=== PATIENT | male | born 1945 | race Caucasian/White ===

== ENCOUNTER 2016-05-21 09:26 | Inpatient (IN) | payer OTHER, BC ==
[2016-02-26 12:03] VITALS: Ht 177.8 cm; Wt 111.1 kg
[~2016-05-21] VITALS: Ht 177.8 cm; Wt 111.1 kg
[2016-05-21 09:26] VITALS: BP 193/92; PULSE 108; RESP 26; TEMP 97.8; O2SAT 92
[~2016-05-21 09:26] MED LIST: ALBU2.5V7 INH; AMI200 PO; CARV12.548 PO; CILO50TA PO; DILT180C66 PO; FESO8TAB PO; FURO-150 PO; GABA-529 PO; GLIP-195 PO; GLIP10TA11 PO; GLIP5TAB13 PO; INSU100V; INSU100V9 SUBCUT; LEVO500T20 PO; LIP20 PO; LIRA0.6P SQ; LOSA1TAB15 PO; METF-510 PO; METH4TAB3 PO; NOR10 PO; OMEP40CA33 PO; POTA20TA83 PO; PRED10TA PO; TIOT4MIS3 IH
[2016-05-21] MEDS ORDERED: methylPREDNISolone SOD SUCC/PF 62.5 MG/ML VIAL IVP ONE ×2 (09:45→12:30)
[2016-05-21] MEDS ORDERED: IPRATROPIUM/ALBUTEROL SULFATE 3 ML AMPUL.NEB INH ONE ×2 (09:45→12:15)
[2016-05-21 10:04] LABS: BASOPHILS % (AUTO) 0.1 % (0.0-2.0); EOSINOPHILS # (AUTO) 0.2 K/uL (0.0-0.4); EOSINOPHILS % (AUTO) 2.9 % (0.0-4.0); HEMATOCRIT 34.4 % (36-54); HEMOGLOBIN 10.8 g/dL (14.0-18.0); LYMPHOCYTES % (AUTO) 13.9 % (20.5-51.5); MEAN CORPUSCULAR HEMOGLOBIN 27 pg (27-31); MEAN CORPUSCULAR HGB CONC 31 % (32-36); MEAN CORPUSCULAR VOLUME 84 fL (79.0-98.0); MONOCYTES # (AUTO) 0.6 K/uL (0.0-1.0); MONOCYTES % (AUTO) 7.8 % (1.7-9.3); NEUTROPHILS # (AUTO) 5.4 K/uL (1.8-7.7); NEUTROPHILS % (AUTO) 75.3 % (40.0-70.0); PLATELET COUNT (AUTO) 228 K/uL (130-430); RED BLOOD CELL COUNT(AUTO) 4.08 MIL/uL (4.2-6.2); RED CELL DISTRIBUTION WIDTH 14.3 % (9.0-15.0); WHITE BLOOD COUNT (AUTO) 7.2 K/uL (4.8-10.8)
[2016-05-21 10:10] LABS: CALCIUM 8.8 mg/dL (8.4-11.0); CREATININE 0.77 mg/dL (0.55-1.30); POTASSIUM 4.4 mmol/L (3.5-5.1)
[2016-05-21 10:14] LABS: ALBUMIN 3.6 g/dL (3.4-4.8); TOTAL BILIRUBIN 0.6 mg/dL (0.0-1.0); TOTAL PROTEIN, SERUM 7.4 g/dL (6.4-8.3)
[2016-05-21] MEDS ORDERED: FUROSEMIDE 40 MG/4 ML VIAL IVP ONE (11:15)
[2016-05-21 13:07] LABS: BLOOD GAS PH 7.378 (7.350-7.450)
[2016-05-21 13:08] LABS: ABG TOTAL HEMOGLOBIN 12.7 G/dL (12.0-18.0); BLOOD GAS BASE EXCESS -3.8 mmol/L (-3.0-3.0); BLOOD GAS COHb% 0.6 % (0.5-1.5); BLOOD GAS HHB 6.2 % (0.0-6.0); BLOOD O2Hb% 93.1 % (94.0-97.0)
[2016-05-21] MEDS ORDERED: DEXTROSE 50% JECT 50 ML DISP.SYRIN IVP PRN (14:30)
[2016-05-21 15:11] VITALS: BP 196/98; PULSE 94
[2016-05-21 15:14] VITALS: BP 180/104; PULSE 105; RESP 20; TEMP 98.3; O2SAT 100
[2016-05-21 15:16] VITALS: BP 180/104; PULSE 104; RESP 20; TEMP 98.3; O2SAT 100
[2016-05-21] MEDS ORDERED: GLUCOSE 15 GM GEL (in 37.5 GM TUBE) PO PRN ×2 (15:45)
[2016-05-21] MEDS ORDERED: DEXTROSE 50%-WATER 50 ML DISP.SYRIN IVP PRN ×2 (15:45)
[2016-05-21] MEDS: ALBUTEROL SULFATE 0.083% 2.5 MG/3 ML VIAL.NEB INH SCH ×3 (16:21→23:22)
[2016-05-21] MEDS: IPRATROPIUM BROM 0.5 MG/2.5 ML VIAL.NEB (ATROVENT) INH SCH ×3 (16:21→23:22)
[2016-05-21] MEDS: GABAPENTIN 100 MG CAPSULE PO SCH ×2 (16:46→20:57)
[2016-05-21] MEDS: cefTRIAXone 1 GM in D5W 50 ML IV SCH (16:46)
[2016-05-21 17:11] LABS: BILIRUBIN,URINE NEGATIVE (NEGATIVE); BLOOD, URINE 1+ (NEGATIVE); CLARITY/URINE CLEAR (CLEAR); COLOR,URINE YELLOW (YELLOW); GLUCOSE,URINE 1+ (NEGATIVE); KETONES,URINE TRACE (NEGATIVE); LEUKOCYTE ESTERASE ,URINE NEGATIVE (NEGATIVE); NITRITE, URINE NEGATIVE (NEGATIVE); PROTEIN URINE 2+ (NEGATIVE); UROBILINOGEN,URINE 0.2 (0.2-1.0)
[2016-05-21 17:26] LABS: WBC,URINE 0-3 /HPF (0-3)
[2016-05-21 17:27] LABS: BACTERIA,URINE FEW /HPF (None Seen); MUCUS,URINE 1+ /LPF (None Seen)
[2016-05-21 17:38] VITALS: BP 182/104; PULSE 105; RESP 18; O2SAT 98
[2016-05-21] MEDS: INSULIN REGULAR, HUMAN 100 UNITS/ML, 10 ML VIAL (novoLIN R) SUBCUT PRN ×2 (17:58→23:07)
[2016-05-21 20:06] VITALS: BP 166/91; PULSE 93; RESP 20; TEMP 97.6; O2SAT 96
[2016-05-21] MEDS: CARVEDILOL 12.5 MG TABLET (COREG) PO SCH (20:58)
[2016-05-21] MEDS: CILOSTAZOL 50 MG TABLET (PLETAL) PO SCH (20:59)
[2016-05-21] MEDS: PREDNISONE 20 MG TABLET PO SCH (20:59)
[2016-05-21] MEDS: glipiZIDE XL 5 MG TAB ( GLUCOTROL XL) PO SCH (21:00)
[2016-05-21] MEDS: AMIODARONE HCL 200 MG TABLET PO SCH (21:00)
[2016-05-22] VITALS: BP 176/92; PULSE 82; RESP 16; TEMP 98.6; O2SAT 96
[2016-05-22] MEDS: IPRATROPIUM BROM 0.5 MG/2.5 ML VIAL.NEB (ATROVENT) INH SCH ×6 (03:00→23:00)
[2016-05-22] MEDS: ALBUTEROL SULFATE 0.083% 2.5 MG/3 ML VIAL.NEB INH SCH ×6 (03:00→23:00)
[2016-05-22 04:16] VITALS: BP 165/85; PULSE 86; RESP 17; TEMP 98.4; O2SAT 96
[2016-05-22] MEDS: ALBUTEROL SULFATE 0.083% 2.5 MG/3 ML VIAL.NEB INH PRN (05:56)
[2016-05-22] MEDS: IPRATROPIUM BROM 0.5 MG/2.5 ML VIAL.NEB (ATROVENT) INH PRN (05:56)
[2016-05-22] MEDS: INSULIN REGULAR, HUMAN 100 UNITS/ML, 10 ML VIAL (novoLIN R) SUBCUT PRN ×4 (06:18→20:58)
[2016-05-22 06:55] LABS: CREATININE 0.73 mg/dL (0.55-1.30); POTASSIUM 4.1 mmol/L (3.5-5.1)
[2016-05-22 07:14] LABS: HEMATOCRIT 32.9 % (36-54); HEMOGLOBIN 10.9 g/dL (14.0-18.0); MEAN CORPUSCULAR HEMOGLOBIN 28 pg (27-31); MEAN CORPUSCULAR HGB CONC 33 % (32-36); MEAN CORPUSCULAR VOLUME 85 fL (79.0-98.0); PLATELET COUNT (AUTO) 230 K/uL (130-430); RED BLOOD CELL COUNT(AUTO) 3.87 MIL/uL (4.2-6.2); RED CELL DISTRIBUTION WIDTH 14.3 % (9.0-15.0)
[2016-05-22 07:45] VITALS: BP 144/78; PULSE 83; RESP 16; TEMP 97.7; O2SAT 96
[2016-05-22 08:03] LABS: WHITE BLOOD COUNT (AUTO) 11.4 K/uL (4.8-10.8)
[2016-05-22] MEDS: glipiZIDE XL 5 MG TAB ( GLUCOTROL XL) PO SCH ×2 (08:24→17:19)
[2016-05-22] MEDS ORDERED: FUROSEMIDE 40 MG/4 ML VIAL IVP SCH (09:00)
[2016-05-22] MEDS ORDERED: LOSARTAN/HYDROCHLOROTHIAZIDE TAB (HYZAAR 50-12.5 MG) PO SCH (09:00)
[2016-05-22] MEDS: CILOSTAZOL 50 MG TABLET (PLETAL) PO SCH ×2 (09:14→21:12)
[2016-05-22] MEDS: PREDNISONE 20 MG TABLET PO SCH ×2 (09:15→21:13)
[2016-05-22] MEDS: GABAPENTIN 100 MG CAPSULE PO SCH ×3 (09:15→21:10)
[2016-05-22] MEDS: ATORVASTATIN 20 MG TABLET PO SCH (09:15)
[2016-05-22] MEDS: POTASSIUM CHLORIDE 20 MEQ TAB.PRT.SR PO SCH (09:15)
[2016-05-22] MEDS: AMIODARONE HCL 200 MG TABLET PO SCH ×2 (09:16→21:10)
[2016-05-22] MEDS: OMEPRAZOLE 20 MG CAPSULE.DR (PriLOSEC) PO SCH (09:17)
[2016-05-22] MEDS: amLODIPine BESYLATE 10 MG TABLET PO SCH (09:17)
[2016-05-22] MEDS: LOSARTAN POTASSIUM 50 MG TABLET (COZAAR) PO SCH (09:17)
[2016-05-22] MEDS: DILTIAZEM HCL 180 MG CAP.SR.24H PO SCH (09:18)
[2016-05-22] MEDS: HYDROCHLOROTHIAZIDE 12.5 MG CAPSULE (HCTZ) PO SCH (09:18)
[2016-05-22] MEDS: CARVEDILOL 12.5 MG TABLET (COREG) PO SCH ×2 (09:18→21:09)
[2016-05-22 09:45] LABS: ATYPICAL LYMPHOCYTES % 0 % (0-0); BAND % (MANUAL) 6 % (0-6); BASOPHILS % (MANUAL) 0 % (0-2); EOSINOPHILS % (MANUAL) 0 % (0-7); LYMPHOCYTES % (MANUAL) 5 % (20-46); MONOCYTES % (MANUAL) 3 % (0-11)
[2016-05-22 12:45] VITALS: BP 127/67; PULSE 92; RESP 19; TEMP 96.8; O2SAT 100
[2016-05-22 14:56] LABS: BLOOD GAS PH 7.433 (7.350-7.450)
[2016-05-22 14:57] LABS: ABG TOTAL HEMOGLOBIN 11.9 G/dL (12.0-18.0); BLOOD GAS BASE EXCESS -0.1 mmol/L (-3.0-3.0); BLOOD GAS COHb% 0.4 % (0.5-1.5); BLOOD GAS HHB 8.3 % (0.0-6.0); BLOOD O2Hb% 90.8 % (94.0-97.0)
[2016-05-22] MEDS: cefTRIAXone 1 GM in D5W 50 ML IV SCH (16:18)
[2016-05-22 16:20] VITALS: BP 117/60; PULSE 65; RESP 17; TEMP 98.2; O2SAT 95
[2016-05-22 20:05] VITALS: BP 132/94; PULSE 75; RESP 15; TEMP 98; O2SAT 99
[2016-05-23 00:13] VITALS: BP 139/68; PULSE 82; RESP 18; TEMP 97.9; O2SAT 96
[2016-05-23] MEDS: ALBUTEROL SULFATE 0.083% 2.5 MG/3 ML VIAL.NEB INH PRN (02:22)
[2016-05-23] MEDS: IPRATROPIUM BROM 0.5 MG/2.5 ML VIAL.NEB (ATROVENT) INH PRN (02:23)
[2016-05-23] MEDS: IPRATROPIUM BROM 0.5 MG/2.5 ML VIAL.NEB (ATROVENT) INH SCH ×6 (03:00→23:14)
[2016-05-23] MEDS: ALBUTEROL SULFATE 0.083% 2.5 MG/3 ML VIAL.NEB INH SCH ×6 (03:00→23:14)
[2016-05-23 04:04] VITALS: BP 124/70; PULSE 71; RESP 20; TEMP 98.6; O2SAT 94
[2016-05-23] MEDS: INSULIN REGULAR, HUMAN 100 UNITS/ML, 10 ML VIAL (novoLIN R) SUBCUT PRN ×3 (06:03→17:31)
[2016-05-23 07:30] LABS: CREATININE 1.28 mg/dL (0.55-1.30); POTASSIUM 4.6 mmol/L (3.5-5.1)
[2016-05-23 08:10] VITALS: BP 127/61; PULSE 72; RESP 18; TEMP 97.1; O2SAT 99
[2016-05-23] MEDS ORDERED: FUROSEMIDE 40 MG TABLET PO SCH (09:00)
[2016-05-23] MEDS: POTASSIUM CHLORIDE 20 MEQ TAB.PRT.SR PO SCH (09:17)
[2016-05-23] MEDS: LOSARTAN POTASSIUM 50 MG TABLET (COZAAR) PO SCH (09:17)
[2016-05-23] MEDS: DILTIAZEM HCL 180 MG CAP.SR.24H PO SCH (09:17)
[2016-05-23] MEDS: ATORVASTATIN 20 MG TABLET PO SCH (09:18)
[2016-05-23] MEDS: glipiZIDE XL 5 MG TAB ( GLUCOTROL XL) PO SCH ×2 (09:18→20:58)
[2016-05-23] MEDS: CARVEDILOL 12.5 MG TABLET (COREG) PO SCH ×2 (09:18→20:58)
[2016-05-23] MEDS: amLODIPine BESYLATE 10 MG TABLET PO SCH (09:19)
[2016-05-23] MEDS: AMIODARONE HCL 200 MG TABLET PO SCH ×2 (09:19→20:57)
[2016-05-23] MEDS: HYDROCHLOROTHIAZIDE 12.5 MG CAPSULE (HCTZ) PO SCH (09:20)
[2016-05-23] MEDS: GABAPENTIN 100 MG CAPSULE PO SCH ×3 (09:21→20:57)
[2016-05-23] MEDS: PREDNISONE 20 MG TABLET PO SCH (09:27)
[2016-05-23] MEDS: CILOSTAZOL 50 MG TABLET (PLETAL) PO SCH ×2 (09:27→20:57)
[2016-05-23] MEDS: OMEPRAZOLE 20 MG CAPSULE.DR (PriLOSEC) PO SCH (09:27)
[2016-05-23 12:31] VITALS: BP 139/77; PULSE 75; RESP 18; TEMP 97.6; O2SAT 100
[2016-05-23] MEDS: cefTRIAXone 1 GM in D5W 50 ML IV SCH (15:36)
[2016-05-23 16:18] VITALS: BP 113/69; PULSE 69; RESP 17; TEMP 98.4; O2SAT 97
[2016-05-23] MEDS: 0.45% NACL 1,000 ML IV SCH (16:32)
[2016-05-23 20:05] VITALS: BP 122/61; PULSE 70; RESP 16; TEMP 98.5; O2SAT 97
[2016-05-23] MEDS: PREDNISONE 10 MG TABLET PO SCH (21:04)
[2016-05-24] VITALS (7 sets, daily range): BP systolic 116–134; BP diastolic 56–68; PULSE 62–69; RESP 16–20; TEMP 96.5–97.4; O2SAT 87–98
[2016-05-24] MEDS: INSULIN REGULAR, HUMAN 100 UNITS/ML, 10 ML VIAL (novoLIN R) SUBCUT PRN ×4 (00:07→16:51)
[2016-05-24] MEDS: IPRATROPIUM BROM 0.5 MG/2.5 ML VIAL.NEB (ATROVENT) INH SCH ×6 (03:00→23:00)
[2016-05-24] MEDS: ALBUTEROL SULFATE 0.083% 2.5 MG/3 ML VIAL.NEB INH SCH ×6 (03:00→23:00)
[2016-05-24] MEDS: IPRATROPIUM BROM 0.5 MG/2.5 ML VIAL.NEB (ATROVENT) INH PRN (05:15)
[2016-05-24] MEDS: ALBUTEROL SULFATE 0.083% 2.5 MG/3 ML VIAL.NEB INH PRN (05:15)
[2016-05-24 08:00] LABS: CREATININE 0.78 mg/dL (0.55-1.30); POTASSIUM 3.4 mmol/L (3.5-5.1)
[2016-05-24 08:14] LABS: CALCIUM 6.8 mg/dL (8.4-11.0)
[2016-05-24] MEDS: GABAPENTIN 100 MG CAPSULE PO SCH ×3 (09:23→20:52)
[2016-05-24] MEDS: POTASSIUM CHLORIDE 20 MEQ TAB.PRT.SR PO SCH (09:23)
[2016-05-24] MEDS: glipiZIDE XL 5 MG TAB ( GLUCOTROL XL) PO SCH ×2 (09:24→20:52)
[2016-05-24] MEDS: HYDROCHLOROTHIAZIDE 12.5 MG CAPSULE (HCTZ) PO SCH (09:24)
[2016-05-24] MEDS: ATORVASTATIN 20 MG TABLET PO SCH (09:24)
[2016-05-24] MEDS: OMEPRAZOLE 20 MG CAPSULE.DR (PriLOSEC) PO SCH (09:24)
[2016-05-24] MEDS: CARVEDILOL 12.5 MG TABLET (COREG) PO SCH ×2 (09:25→20:53)
[2016-05-24] MEDS: CILOSTAZOL 50 MG TABLET (PLETAL) PO SCH ×2 (09:25→20:52)
[2016-05-24] MEDS: AMIODARONE HCL 200 MG TABLET PO SCH ×2 (09:26→20:53)
[2016-05-24] MEDS: amLODIPine BESYLATE 10 MG TABLET PO SCH (09:26)
[2016-05-24] MEDS: PREDNISONE 10 MG TABLET PO SCH ×2 (09:26→20:52)
[2016-05-24] MEDS: LOSARTAN POTASSIUM 50 MG TABLET (COZAAR) PO SCH (09:27)
[2016-05-24] MEDS: DILTIAZEM HCL 180 MG CAP.SR.24H PO SCH (09:28)
[2016-05-24] MEDS: 0.45% NACL 1,000 ML IV SCH (09:38)
[2016-05-24] MEDS: cefTRIAXone 1 GM in D5W 50 ML IV SCH (15:37)
[2016-05-25 00:14] VITALS: BP 118/55; PULSE 65; RESP 18; TEMP 98.7; O2SAT 92
[2016-05-25] MEDS: INSULIN REGULAR, HUMAN 100 UNITS/ML, 10 ML VIAL (novoLIN R) SUBCUT PRN ×2 (00:23→05:21)
[2016-05-25] MEDS: ALBUTEROL SULFATE 0.083% 2.5 MG/3 ML VIAL.NEB INH SCH ×3 (03:00→11:41)
[2016-05-25] MEDS: IPRATROPIUM BROM 0.5 MG/2.5 ML VIAL.NEB (ATROVENT) INH SCH ×3 (03:00→11:41)
[2016-05-25] MEDS: ALBUTEROL SULFATE 0.083% 2.5 MG/3 ML VIAL.NEB INH PRN (03:30)
[2016-05-25] MEDS: IPRATROPIUM BROM 0.5 MG/2.5 ML VIAL.NEB (ATROVENT) INH PRN (03:31)
[2016-05-25 04:27] VITALS: BP 136/73; PULSE 69; RESP 20; TEMP 97.9; O2SAT 92
[2016-05-25] MEDS: 0.45% NACL 1,000 ML IV SCH (05:20)
[2016-05-25 08:00] VITALS: BP 156/68; PULSE 68; RESP 20; TEMP 97.9; O2SAT 92
[2016-05-25] MEDS: CILOSTAZOL 50 MG TABLET (PLETAL) PO SCH (09:04)
[2016-05-25] MEDS: GABAPENTIN 100 MG CAPSULE PO SCH (09:05)
[2016-05-25] MEDS: HYDROCHLOROTHIAZIDE 12.5 MG CAPSULE (HCTZ) PO SCH (09:05)
[2016-05-25] MEDS: glipiZIDE XL 5 MG TAB ( GLUCOTROL XL) PO SCH (09:05)
[2016-05-25] MEDS: DILTIAZEM HCL 180 MG CAP.SR.24H PO SCH (09:06)
[2016-05-25] MEDS: AMIODARONE HCL 200 MG TABLET PO SCH (09:06)
[2016-05-25] MEDS: PREDNISONE 10 MG TABLET PO SCH (09:06)
[2016-05-25] MEDS: CARVEDILOL 12.5 MG TABLET (COREG) PO SCH (09:07)
[2016-05-25] MEDS: LOSARTAN POTASSIUM 50 MG TABLET (COZAAR) PO SCH (09:07)
[2016-05-25] MEDS: POTASSIUM CHLORIDE 20 MEQ TAB.PRT.SR PO SCH (09:07)
[2016-05-25] MEDS: ATORVASTATIN 20 MG TABLET PO SCH (09:07)
[2016-05-25] MEDS: OMEPRAZOLE 20 MG CAPSULE.DR (PriLOSEC) PO SCH (09:07)
[2016-05-25] MEDS: amLODIPine BESYLATE 10 MG TABLET PO SCH (09:08)
[2016-05-25 12:57] VITALS: BP 141/68; PULSE 66; RESP 17; TEMP 96.9; O2SAT 97
== END 2016-05-25 13:40 | disposition home or self-care (01) | DRG 190 ==
LOC: SED 09:26 → SMU 12:38 → STU 14:51
PROVIDERS: ADMIT Internal Medicine Hospice and Palliative Medicine; ATTEND Internal Medicine Hospice and Palliative Medicine
DX: J44.1 Chronic obstructive pulmonary disease with (acute) exacerbation (principal); I50.21 Acute systolic (congestive) heart failure; J45.901 Unspecified asthma with (acute) exacerbation; I11.0 Hypertensive heart disease with heart failure; I25.10 Atherosclerotic heart disease of native coronary artery without angina pectoris; E11.65 Type 2 diabetes mellitus with hyperglycemia; Z96.653 Presence of artificial knee joint, bilateral; E11.51 Type 2 diabetes mellitus with diabetic peripheral angiopathy without gangrene; E11.42 Type 2 diabetes mellitus with diabetic polyneuropathy; Z90.49 Acquired absence of other specified parts of digestive tract; Z79.899 Other long term (current) drug therapy; Z95.1 Presence of aortocoronary bypass graft; Z79.4 Long term (current) use of insulin; Z86.73 Personal history of transient ischemic attack (TIA), and cerebral infarction without residual deficits
CPT/HCPCS: 36415; 36600; 71010; 80048; 80053; 81000-TC; 82803-TC; 82962; 83880; 85007; 85025; 85027; 87040-TC; 87086; 93005; 93306; 93970; 94640; 94760; 96374; 96375; 96376; 97110-GP; 97116-GP; 97530-GP; 99291; J0696; J1815; J1940; J2930; J7030; J7040; J7050; J7060; J7512

== ENCOUNTER 2016-06-23 21:16 | Inpatient (IN) | payer OTHER, BC ==
[2016-02-26 12:03] VITALS: Ht 177.8 cm; Wt 114.3 kg
[~2016-06-23] VITALS: Ht 177.8 cm; Wt 114.3 kg
--- NOTE | 2016-06-23 20:00 | NUR ---
Notes Patient is A/A/O X4, no acute distress noted. On room air, respiration even and unlabored. No sob noted. 2+ pitting edema to papo lower ext noted. Elevated papo lower ext on pillow support. Denies any pain at this time. Instructed pt on the use of call light. Pt verbalized understanding. Bed locked and in low position, side rails up x3, bed alarm on. Call light, urinal and bedside table within reach. Will continue to monitor. Addendum: 06/24/16 at 2337 by Arelis Hanson LVN wrong time entry
[2016-06-23 21:20] VITALS: BP 147/80; PULSE 96; RESP 16; TEMP 97.8; O2SAT 98
--- NOTE | 2016-06-23 22:18 | NUR ---
Patient to ER bed 7 to gown for evaluation. Side rails up. Report given to AMPARO MARCH.
--- NOTE | 2016-06-23 22:30 | NUR ---
ER at bedside examining patient.
--- NOTE | 2016-06-23 22:30 | NUR ---
Pt brought in by sister in stable condition. Pt c/o difficulty breathing today. Pt present w/ pitting edema to bilat lower extremities. Pt was recently discharge for [facility] for COPD. Pt stated that he has generalized weakness x3 days. -sob -chest pain. Placed pt on youth nutritional monitor. No acute distress noted at this time, will continue to monitor
[2016-06-23 23:31] LABS: BASOPHILS % (AUTO) 0.1 % (0.0-2.0); EOSINOPHILS % (AUTO) 0.1 % (0.0-4.0); HEMATOCRIT 31.1 % (36-54); HEMOGLOBIN 9.8 g/dL (14.0-18.0); LYMPHOCYTES # (AUTO) 0.4 K/uL (1.0-5.5); LYMPHOCYTES % (AUTO) 8.5 % (20.5-51.5); MEAN CORPUSCULAR HEMOGLOBIN 26 pg (27-31); MEAN CORPUSCULAR HGB CONC 32 % (32-36); MEAN CORPUSCULAR VOLUME 83 fL (79.0-98.0); MONOCYTES # (AUTO) 0.1 K/uL (0.0-1.0); MONOCYTES % (AUTO) 1.7 % (1.7-9.3); NEUTROPHILS # (AUTO) 4.1 K/uL (1.8-7.7); NEUTROPHILS % (AUTO) 89.6 % (40.0-70.0); PLATELET COUNT (AUTO) 244 K/uL (130-430); RED BLOOD CELL COUNT(AUTO) 3.75 MIL/uL (4.2-6.2); RED CELL DISTRIBUTION WIDTH 15.7 % (9.0-15.0); WHITE BLOOD COUNT (AUTO) 4.6 K/uL (4.8-10.8)
[2016-06-23 23:36] LABS: CALCIUM 8.8 mg/dL (8.4-11.0); CREATININE 1.2 mg/dL (0.55-1.30); POTASSIUM 3.7 mmol/L (3.5-5.1)
[2016-06-23] MEDS ORDERED: FUROSEMIDE 100 MG/10 ML VIAL IVP ONE (23:45)
[2016-06-23 23:56] LABS: ALBUMIN 3.4 g/dL (3.4-4.8); TOTAL BILIRUBIN 0.6 mg/dL (0.0-1.0); TOTAL PROTEIN, SERUM 6.8 g/dL (6.4-8.3)
[2016-06-24] VITALS (7 sets, daily range): BP systolic 102–152; BP diastolic 60–93; PULSE 73–99; RESP 18–20; TEMP 96.2–98.5; O2SAT 94–97
[2016-06-24] MEDS ORDERED: ALBU8.5H8 INH (00:10)
[2016-06-24] MEDS ORDERED: DEXTROSE 50% JECT 50 ML DISP.SYRIN IVP PRN (00:15)
--- NOTE | 2016-06-24 00:45 | NUR ---
Patient will be admitted to care of Dr. Holman. Admitted to tele unit. Will go to room 135 Belongings list completed. Summary report printed. Report given to AMPARO Guillen.
--- NOTE | 2016-06-24 00:46 | NUR ---
ADMISSION NOTE Received patient from ER via gurney. Patient admitted with diagnosis of CHF EXACERBATION. Patient is awake, alert, oriented X4. Patient oriented to hospital room, call light, toileting, pain management and safety-teach back done. Patient informed that KEMAL RN will be his nurse and that their room number is 118B. Personal belongings checked and Belongings List documented. Call light within reach.
--- NOTE | 2016-06-24 00:48 | NUR ---
INITIAL ASSESSMENT PT. A/OX4, VITAL SIGNS STABLE, PT. ABLE TO AMBULATE FROM GURNEY TO BED WITH SLOW, STEADY, GAIT. NO RESPIRATORY DISTRESS NOTED, O2 IS 96% ON ROOM AIR, NOTED WITH BILATERAL LOWER EXTREMITY PITTING EDEMA 2+, BLE ELEVATED, UPDATED WITH PLAN OF CARE, ENCOURAGED PT. TO USE CALL LIGHT FOR ASSISTANCE, SAFETY PRECAUTIONS MAINTAINED, WILL CONTINUE TO MONITOR.
[2016-06-24] MEDS: ASPIRIN 325 MG TABLET PO SCH ×2 (01:01→09:34)
--- NOTE | 2016-06-24 01:06 | NUR ---
CONSULT: CONSULT CALLED FOR DR. MARIN I SPOKE WITH TERESA FRAGA REASON: CHF EXACERBATION NUMBER I CALLED [phone]
--- NOTE | 2016-06-24 01:30 | NUR ---
URINAL PT. ABLE TO URINATE IN URINAL, NOTED WITH 300 CC HÉCTOR URINE.
--- NOTE | 2016-06-24 03:33 | NUR ---
RN ROUNDS PT. RESTING QUIETLY, VITAL SIGNS STABLE, NO DISTRESS NOTED, DENIES PAIN, CALL LIGHT WITHIN REACH, WILL CONTINUE TO MONITOR.
--- NOTE | 2016-06-24 05:30 | NUR ---
RN ROUNDS PT. RESTING QUIETLY, VITAL SIGNS STABLE, NO DISTRESS NOTED, DENIES PAIN. CALL LIGHT WITHIN REACH, WILL CONTINUE TO MONITOR.
[2016-06-24] MEDS: INSULIN ASPART 100 UNITS/ML, 10 ML VIAL (NovoLOG) SUBCUT PRN ×2 (06:03→13:18)
--- NOTE | 2016-06-24 06:28 | NUR ---
ACCUCHECK, CLOSING NOTES BLOOD SUGAR 191, 2 UNITS NOVOLOG GIVEN ORDERED. VITAL SIGNS STABLE, NO DISTRESS NOTED, DENIES PAIN, IV ACCESS FLUSHED WELL, ALL ANTICIPATED NEEDS MET.
--- NOTE | 2016-06-24 07:25 | NUR ---
Nutrition Update Pt was admitted with chronic heart failure exacerbation. Zohaib Scale: 18 Diet: CCHO-60 gm BMI: 36.2 kg/m2 RD to follow up per nutrition care standards.
--- NOTE | 2016-06-24 08:00 | NUR ---
initial notes [facility] patient awake alert with hob slightly elevated . on room air, resp easy and unlabored. no sob noted. call light within reached and assisted to the br with min assists and had a bowel movement. bed in low positon and side rails up and locked. will ocntinue to monitor patient.
[2016-06-24] MEDS ORDERED: LOSARTAN/HYDROCHLOROTHIAZIDE TAB (HYZAAR 50-12.5 MG) PO SCH (09:00)
[2016-06-24] MEDS ORDERED: glipiZIDE XL 5 MG TAB ( GLUCOTROL XL) PO SCH (09:00)
--- NOTE | 2016-06-24 09:20 | NUR ---
Pulmo consult: for Dr. Simental, regarding SOB (Dr. Gutierrez is communications billing analyst), ordered by Dr. Holman, spoke with Gia.
[2016-06-24] MEDS ORDERED: LORazepam 2 MG/ML VIAL IVP PRN (09:30)
[2016-06-24] MEDS ORDERED: POTASSIUM CHLORIDE 10 MEQ TAB.PRT.SR PO PRN (09:30)
[2016-06-24] MEDS ORDERED: ZOLPIDEM TARTRATE 5 MG TABLET PO PRN (09:30)
[2016-06-24] MEDS ORDERED: ACETAMINOPHEN 325 MG TABLET PO PRN (09:30)
[2016-06-24] MEDS ORDERED: MAGNESIUM SULFATE 50 ML IV PRN (09:30)
[2016-06-24] MEDS ORDERED: DOCUSATE SODIUM 100 MG CAPSULE PO PRN (09:30)
[2016-06-24] MEDS ORDERED: MORPHINE 2 MG/ML INJ. SYRINGE IVP PRN (09:30)
[2016-06-24] MEDS ORDERED: ONDANSETRON HCL 4 MG/2 ML VIAL IVP PRN (09:30)
[2016-06-24] MEDS: GABAPENTIN 100 MG CAPSULE PO SCH ×3 (09:32→20:57)
[2016-06-24] MEDS: OMEPRAZOLE 20 MG CAPSULE.DR (PriLOSEC) PO SCH (09:32)
[2016-06-24] MEDS: DILTIAZEM HCL 180 MG CAP.SR.24H PO SCH (09:33)
[2016-06-24] MEDS: AMIODARONE HCL 200 MG TABLET PO SCH ×2 (09:34→20:57)
[2016-06-24] MEDS: CARVEDILOL 12.5 MG TABLET (COREG) PO SCH ×2 (09:36→20:57)
--- NOTE | 2016-06-24 09:41 | NUR ---
seen by dr tracy. abg done at bedside.
[2016-06-24] MEDS: POTASSIUM CHLORIDE 20 MEQ TAB.PRT.SR PO SCH (09:48)
[2016-06-24 10:10] LABS: ABG TOTAL HEMOGLOBIN 10.6 G/dL (12.0-18.0); BLOOD GAS BASE EXCESS 0.6 mmol/L (-3.0-3.0); BLOOD GAS PH 7.459 (7.350-7.450)
[2016-06-24 10:11] LABS: BLOOD GAS COHb% 0.1 % (0.5-1.5); BLOOD GAS HHB 6.7 % (0.0-6.0); BLOOD O2Hb% 92.7 % (94.0-97.0)
[2016-06-24] MEDS ORDERED: ASPIRIN 81 MG TAB.CHEW PO ONE (10:15)
[2016-06-24] MEDS ORDERED: FUROSEMIDE 40 MG/4 ML VIAL IVP ONE (10:15)
[2016-06-24] MEDS ORDERED: ENOXAPARIN SODIUM 40 MG/0.4 ML SYRINGE SUBCUT ONE (10:15)
[2016-06-24] MEDS ORDERED: LOSARTAN POTASSIUM 50 MG TABLET (COZAAR) PO ONE (10:45)
[2016-06-24] MEDS ORDERED: HYDROCHLOROTHIAZIDE 25 MG TABLET (HCTZ) PO ONE (10:45)
--- NOTE | 2016-06-24 12:00 | NUR ---
rounds no hypo hyperglycemic reaction noted. family in the room with the patient. no acute distress.
[2016-06-24] MEDS ORDERED: COMMUNICATION ORDER XX ONE ×2 (13:15→16:30)
--- NOTE | 2016-06-24 14:00 | NUR ---
rounds sleeps at intervals. no acute distress noted. call light within reached.
[2016-06-24] MEDS ORDERED: ATORVASTATIN 20 MG TABLET PO ONE (14:45)
[2016-06-24] MEDS ORDERED: ALBUTEROL SULFATE 0.083% 2.5 MG/3 ML VIAL.NEB INH PRN (15:30)
[2016-06-24] MEDS ORDERED: IPRATROPIUM BROM 0.5 MG/2.5 ML VIAL.NEB (ATROVENT) INH PRN (15:30)
--- NOTE | 2016-06-24 16:00 | NUR ---
rounds on breathing tx at this time. no sob noted. voiding using urinal at bedside.
[2016-06-24] MEDS: IPRATROPIUM/ALBUTEROL SULFATE 3 ML AMPUL.NEB INH SCH ×2 (16:24→16:25)
--- NOTE | 2016-06-24 18:30 | NUR ---
closing notes eating dinner. no hypo hyperglycemic reaction noted. bed in low position and side rails up and locked. no acute distress noted. stable , needs attended.
--- NOTE | 2016-06-24 20:00 | NUR ---
Notes Patient is A/A/O X4, no acute distress noted. On room air, respiration even and unlabored. No sob noted. 2+ pitting edema to papo lower ext noted. Elevated papo lower ext on pillow support. Denies any pain at this time. Instructed pt on the use of call light. Pt verbalized understanding. Bed locked and in low position, side rails up x3, bed alarm on. Call light, urinal and bedside table within reach. Will continue to monitor.
[2016-06-24] MEDS: glipiZIDE XL 5 MG TAB ( GLUCOTROL XL) PO SCH (20:56)
--- NOTE | 2016-06-24 21:01 | NUR ---
NOTES; BLOOD SUGAR FOUND TO BE 96. NO INSULIN ADMINISTERED PER SLIDING SCALE COVERAGE. SCHEDULED PO MEDICATION ADMINISTERED. PT TOLERATED MEDS WELL. SNACK OF 1/2 SANDWICH PROVIDED. PT ATE 100%. SAFETY MEASURES IN PROGRESS. WILL CONTINUE TO MONITOR.
[2016-06-24] MEDS: FUROSEMIDE 40 MG/4 ML VIAL IVP SCH (21:34)
--- NOTE | 2016-06-24 23:26 | NUR ---
NOTES; PT APPEARED TO BE SLEEPING, EYES CLOSED. RESPIRATION EVEN AND UNLABORED. EASILY AROUSED. SAFETY MEASURES IN PROGRESS. WILL CONTINUE TO MONITOR.
--- NOTE | 2016-06-24 23:36 | NUR ---
Notes Patient is A/A/O X4, no acute distress noted. On room air, respiration even and unlabored. No sob noted. 2+ pitting edema to papo lower ext noted. Elevated papo lower ext on pillow support. Denies any pain at this time. Instructed pt on the use of call light. Pt verbalized understanding. Bed locked and in low position, side rails up x3, bed alarm on. Call light, urinal and bedside table within reach. Will continue to monitor. Addendum: 06/24/16 at 2336 by Arelis Hanson LVN wrong time entry
[2016-06-25] VITALS (7 sets, daily range): BP systolic 102–135; BP diastolic 60–71; PULSE 59–76; RESP 16–18; TEMP 96–98.2; O2SAT 94–99
--- NOTE | 2016-06-25 02:00 | NUR ---
NOTES; PT APPEARED TO BE SLEEPING, EYES CLOSED. RESPIRATION EVEN AND UNLABORED. EASILY AROUSED. SAFETY MEASURES IN PROGRESS. WILL CONTINUE TO MONITOR.
--- NOTE | 2016-06-25 04:30 | NUR ---
NOTES; PT APPEARED TO BE SLEEPING, EYES CLOSED. RESPIRATION EVEN AND UNLABORED. EASILY AROUSED. SAFETY MEASURES IN PROGRESS. WILL CONTINUE TO MONITOR.
--- NOTE | 2016-06-25 06:27 | NUR ---
NOTES AWAKE, IN BED. NO ACUTE DISTRESS NOTED. VITAL SIGNS STABLE, AFEBRILE. IV PATENT. BLOOD SUGAR FOUND TO BE 90. NO SIGNS OR SYMPTOMS OF HYPOGLYCEMIA NOTED. DENIES ANY PAIN AT THIS TIME. ALL NEEDS ATTENDED. SAFETY MEASURES IN PROGRESS.
[2016-06-25] MEDS: ALBUTEROL SULFATE 0.083% 2.5 MG/3 ML VIAL.NEB INH SCH ×4 (06:31→21:56)
[2016-06-25] MEDS: IPRATROPIUM BROM 0.5 MG/2.5 ML VIAL.NEB (ATROVENT) INH SCH ×4 (06:31→21:57)
[2016-06-25] MEDS: IPRATROPIUM/ALBUTEROL SULFATE 3 ML AMPUL.NEB INH SCH ×3 (06:34→15:00)
[2016-06-25 07:28] LABS: BASOPHILS % (AUTO) 0.2 % (0.0-2.0); EOSINOPHILS # (AUTO) 0.1 K/uL (0.0-0.4); EOSINOPHILS % (AUTO) 1.3 % (0.0-4.0); HEMATOCRIT 31.3 % (36-54); HEMOGLOBIN 9.7 g/dL (14.0-18.0); LYMPHOCYTES # (AUTO) 1.7 K/uL (1.0-5.5); LYMPHOCYTES % (AUTO) 22.1 % (20.5-51.5); MEAN CORPUSCULAR HEMOGLOBIN 26 pg (27-31); MEAN CORPUSCULAR HGB CONC 31 % (32-36); MEAN CORPUSCULAR VOLUME 83 fL (79.0-98.0); MONOCYTES # (AUTO) 0.7 K/uL (0.0-1.0); MONOCYTES % (AUTO) 8.6 % (1.7-9.3); NEUTROPHILS # (AUTO) 5.4 K/uL (1.8-7.7); NEUTROPHILS % (AUTO) 67.8 % (40.0-70.0); PLATELET COUNT (AUTO) 263 K/uL (130-430); RED CELL DISTRIBUTION WIDTH 15.4 % (9.0-15.0)
[2016-06-25 07:36] LABS: CALCIUM 8.9 mg/dL (8.4-11.0); CREATININE 1.33 mg/dL (0.55-1.30); POTASSIUM 4.1 mmol/L (3.5-5.1)
[2016-06-25 07:37] LABS: WHITE BLOOD COUNT (AUTO) 7.9 K/uL (4.8-10.8)
--- NOTE | 2016-06-25 08:00 | NUR ---
initial notes rec patient awake alert with hob elevated. ivl on the l forearm intact. no infiltration noted. with o2 at 2 liters via nasal cannula. no sob noted . denies any chest pain and resting quietly in bed. bed in low position and side rails up and locked. call light within reached and knows when to call for assistance.
[2016-06-25 08:24] LABS: ALBUMIN 3.4 g/dL (3.4-4.8); TOTAL BILIRUBIN 0.7 mg/dL (0.0-1.0); TOTAL PROTEIN, SERUM 6.5 g/dL (6.4-8.3)
[2016-06-25] MEDS ORDERED: FUROSEMIDE 40 MG/4 ML VIAL IVP SCH ×2 (09:00)
[2016-06-25 09:01] LABS: THYROID STIMULATING HORMONE 0.91 uIu/mL (0.34-4.82)
[2016-06-25] MEDS: TOVIAZ 8 MG PO SCH (09:21)
[2016-06-25] MEDS: POTASSIUM CHLORIDE 20 MEQ TAB.PRT.SR PO SCH (09:22)
[2016-06-25] MEDS: OMEPRAZOLE 20 MG CAPSULE.DR (PriLOSEC) PO SCH (09:22)
[2016-06-25] MEDS: ENOXAPARIN SODIUM 40 MG/0.4 ML SYRINGE SUBCUT SCH (09:23)
[2016-06-25] MEDS: glipiZIDE XL 5 MG TAB ( GLUCOTROL XL) PO SCH ×2 (09:23→22:22)
[2016-06-25] MEDS: AMIODARONE HCL 200 MG TABLET PO SCH ×2 (09:24→21:00)
[2016-06-25] MEDS: FUROSEMIDE 40 MG/4 ML VIAL IVP SCH ×2 (09:24→22:23)
[2016-06-25] MEDS: ASPIRIN 81 MG TAB.CHEW PO SCH (09:25)
[2016-06-25] MEDS: HYDROCHLOROTHIAZIDE 25 MG TABLET (HCTZ) PO SCH (09:25)
[2016-06-25] MEDS: DILTIAZEM HCL 180 MG CAP.SR.24H PO SCH (09:26)
[2016-06-25] MEDS: GABAPENTIN 100 MG CAPSULE PO SCH ×3 (09:26→22:23)
[2016-06-25] MEDS: CARVEDILOL 12.5 MG TABLET (COREG) PO SCH ×2 (09:27→21:00)
[2016-06-25] MEDS: ATORVASTATIN 20 MG TABLET PO SCH (09:27)
[2016-06-25] MEDS ORDERED: METOLAZONE 2.5 MG TABLET PO ONE (09:30)
[2016-06-25] MEDS: LOSARTAN POTASSIUM 50 MG TABLET (COZAAR) PO SCH (09:43)
--- NOTE | 2016-06-25 10:00 | NUR ---
rounds seen by dr tracy at bedside and with orders. no acute distress no sob noted.
--- NOTE | 2016-06-25 12:00 | NUR ---
rounds no acute distress noted. patient watching the interment of through [place] form the [place]. stable.
--- NOTE | 2016-06-25 14:00 | NUR ---
rounds family at bedside with patient post interment of patient's . no acute distress. stable . call light within reached.
--- NOTE | 2016-06-25 16:00 | NUR ---
rounds family still at bedside comforting patient. no sob noted.
--- NOTE | 2016-06-25 18:30 | NUR ---
closing notes no acute distress,no hypo hyperglycemic reaction noted. bed in low position and call light within reached. stable needs attended.
--- NOTE | 2016-06-25 20:00 | NUR ---
BEGINNING REGISTER OF DEEDS NOTE Patient in bed resting. No S/S of respiratory distress noted, no pain. Bed in low position, call light within reach. Patient stated he is cold and requested air conditioning decreased. The nurse followed up with the security. Report received from day shift nurse
--- NOTE | 2016-06-25 22:00 | NUR ---
2200 NOTE Patient sitting in a chair next to bed watching TV. No S/S of distress or pain noted. Fall precautions in place. The nurse withheld 2 scheduled medications: Amiodarone and Carvedilol due to a low heart rate 59, the borderline low blood pressure 108/61 and the scheduled at the same time Lasix 40 mg IV push.
--- NOTE | 2016-06-26 | NUR ---
0000 ROUNDS Patient in bed sleeping. No S/S of any distress noted, no pain. Fall precautions in place.
--- NOTE | 2016-06-26 02:00 | NUR ---
0200 ROUNDS Patient in bed sleeping. No pain or any distress noted. Fall precautions in place.
[2016-06-26 03:57] VITALS: BP 154/70; PULSE 62; RESP 16; TEMP 97.2; O2SAT 95
--- NOTE | 2016-06-26 04:00 | NUR ---
0400 ROUNDS Patient in bed sleeping. No S/S of pain or distress noted. Fall precautions in place.
[2016-06-26 06:49] LABS: CALCIUM 8.8 mg/dL (8.4-11.0); CREATININE 1.35 mg/dL (0.55-1.30); POTASSIUM 3.5 mmol/L (3.5-5.1)
[2016-06-26 06:51] LABS: BASOPHILS % (AUTO) 0.3 % (0.0-2.0); EOSINOPHILS # (AUTO) 0.3 K/uL (0.0-0.4); EOSINOPHILS % (AUTO) 3.8 % (0.0-4.0); HEMATOCRIT 32.1 % (36-54); HEMOGLOBIN 10.2 g/dL (14.0-18.0); LYMPHOCYTES # (AUTO) 1.4 K/uL (1.0-5.5); LYMPHOCYTES % (AUTO) 19.5 % (20.5-51.5); MEAN CORPUSCULAR HEMOGLOBIN 26 pg (27-31); MEAN CORPUSCULAR HGB CONC 32 % (32-36); MEAN CORPUSCULAR VOLUME 82 fL (79.0-98.0); MONOCYTES # (AUTO) 0.7 K/uL (0.0-1.0); NEUTROPHILS # (AUTO) 4.6 K/uL (1.8-7.7); NEUTROPHILS % (AUTO) 66.4 % (40.0-70.0); PLATELET COUNT (AUTO) 264 K/uL (130-430); RED BLOOD CELL COUNT(AUTO) 3.91 MIL/uL (4.2-6.2)
--- NOTE | 2016-06-26 06:55 | NUR ---
CLOSING NOTE Patient sitting at the edge of bed. He stated that he just used the urinal. He also stated that he slept well and he is not in pain. No S/S of any distress noted. Patient's needs met throughout the shift. Report will be given to the day shift nurse.
[2016-06-26] MEDS: IPRATROPIUM BROM 0.5 MG/2.5 ML VIAL.NEB (ATROVENT) INH SCH ×2 (07:16→15:36)
[2016-06-26] MEDS: ALBUTEROL SULFATE 0.083% 2.5 MG/3 ML VIAL.NEB INH SCH ×3 (07:16→22:28)
[2016-06-26 07:46] VITALS: BP 132/67; PULSE 64; RESP 16; TEMP 97.5; O2SAT 94
[2016-06-26] MEDS: OMEPRAZOLE 20 MG CAPSULE.DR (PriLOSEC) PO SCH (08:37)
[2016-06-26] MEDS: ATORVASTATIN 20 MG TABLET PO SCH (08:37)
[2016-06-26] MEDS: DILTIAZEM HCL 180 MG CAP.SR.24H PO SCH (08:38)
[2016-06-26] MEDS: CARVEDILOL 12.5 MG TABLET (COREG) PO SCH ×2 (08:39→20:50)
[2016-06-26] MEDS: LOSARTAN POTASSIUM 50 MG TABLET (COZAAR) PO SCH (08:40)
[2016-06-26] MEDS: AMIODARONE HCL 200 MG TABLET PO SCH ×2 (08:41→20:50)
[2016-06-26] MEDS: glipiZIDE XL 5 MG TAB ( GLUCOTROL XL) PO SCH ×2 (08:41→20:55)
[2016-06-26] MEDS: ASPIRIN 81 MG TAB.CHEW PO SCH (08:41)
[2016-06-26] MEDS: POTASSIUM CHLORIDE 20 MEQ TAB.PRT.SR PO SCH (08:41)
[2016-06-26] MEDS: FUROSEMIDE 40 MG/4 ML VIAL IVP SCH (08:43)
[2016-06-26] MEDS: HYDROCHLOROTHIAZIDE 25 MG TABLET (HCTZ) PO SCH (08:43)
[2016-06-26] MEDS: GABAPENTIN 100 MG CAPSULE PO SCH ×3 (08:43→20:50)
[2016-06-26] MEDS: TOVIAZ 8 MG PO SCH (08:44)
[2016-06-26] MEDS: ENOXAPARIN SODIUM 40 MG/0.4 ML SYRINGE SUBCUT SCH (08:44)
--- NOTE | 2016-06-26 09:30 | NUR ---
MOBILITY UP AT BEDSIDE FOR BREAKFAST AND ASSISTED BY FAMILY IN HALLWAY. PATIENT IN WHEELCHAIR WHILE IN [place].
--- NOTE | 2016-06-26 10:30 | NUR ---
SITTING UP IN CHAIR IN ROOM WITH FAMILY. DENIES PAIN OR SOB. ANSWERING QUESTIONS WITHOUT DIFFICULTY. INSTRUCTED TO CALL IF ANY NEEDS. PATIENT GIVES VERBAL STATEMENT OF UNDERSTANDING.
[2016-06-26 11:38] VITALS: BP 142/58; PULSE 66; RESP 19; TEMP 96.2; O2SAT 94
[2016-06-26 15:31] VITALS: BP 126/64; RESP 16; TEMP 98.4; O2SAT 95
--- NOTE | 2016-06-26 17:42 | NUR ---
rounds: sitting up in chair at bedside with family visiting. denies pain. no respiratory distress noted. appetite and fluid intake is good. no difficulty swallowing. voiding without difficulty. has been moving around in room with assist and out in mensah per wheelchair. encouraged to elevate lower extremities while up in chair and in bed. patient verbalizes understanding of instruction given. call light in reach.
[2016-06-26 19:50] VITALS: BP 137/66; PULSE 58; RESP 18; TEMP 96.9; O2SAT 96
--- NOTE | 2016-06-26 19:55 | NUR ---
Notes Patient is A/A/O X4, no acute distress noted. On room air, respiration even and unlabored. No sob noted. 2+ pitting edema to papo lower ext noted. Elevated papo lower ext on pillow support. Lt arm bruises noted. Denies any pain at this time. Instructed pt on the use of call light. Pt verbalized understanding. Bed locked and in low position, side rails up x3, bed alarm on. Call light, urinal and bedside table within reach. Will continue to monitor.
[2016-06-26] MEDS: FUROSEMIDE 40 MG TABLET PO SCH (20:49)
--- NOTE | 2016-06-26 20:58 | NUR ---
NOTES; BLOOD SUGAR FOUND TO BE 149. NO INSULIN ADMINISTRATION NEEDED PER SLIDING SCALE COVERAGE ORDER. SCHEDULED PO MEDICATION ADMINISTERED. PT TOLERATED MEDS WELL. DENIES ANY PAIN AT THIS TIME. SAFETY MEASURES IN PROGRESS. WILL CONTINUE TO MONITOR.
[2016-06-26] MEDS: IPRATROPIUM/ALBUTEROL SULFATE 3 ML AMPUL.NEB INH SCH (22:27)
--- NOTE | 2016-06-26 22:45 | NUR ---
NOTES; PT APPEARED TO BE SLEEPING, EYES CLOSED. RESPIRATION EVEN AND UNLABORED. EASILY AROUSED. SAFETY MEASURES IN PROGRESS. WILL CONTINUE TO MONITOR.
[2016-06-27] VITALS: BP 110/53; PULSE 54; RESP 18; TEMP 98; O2SAT 97
--- NOTE | 2016-06-27 00:10 | NUR ---
NOTES; PT APPEARED TO BE SLEEPING, EYES CLOSED. RESPIRATION EVEN AND UNLABORED. EASILY AROUSED. SAFETY MEASURES IN PROGRESS. WILL CONTINUE TO MONITOR.
--- NOTE | 2016-06-27 02:00 | NUR ---
NOTES; PT APPEARED TO BE SLEEPING, EYES CLOSED. RESPIRATION EVEN AND UNLABORED. EASILY AROUSED. SAFETY MEASURES IN PROGRESS. WILL CONTINUE TO MONITOR.
[2016-06-27 04:30] VITALS: BP 140/70; PULSE 61; RESP 18; TEMP 97; O2SAT 95
--- NOTE | 2016-06-27 04:30 | NUR ---
NOTES; PT APPEARED TO BE SLEEPING, EYES CLOSED. RESPIRATION EVEN AND UNLABORED. EASILY AROUSED. SAFETY MEASURES IN PROGRESS. WILL CONTINUE TO MONITOR.
--- NOTE | 2016-06-27 06:38 | NUR ---
NOTES AWAKE, IN BED. NO ACUTE DISTRESS NOTED. VITAL SIGNS STABLE, AFEBRILE. IV LINE IS PATENT. BLOOD SUGAR FOUND TO BE 105. NO SIGNS OR SYMPTOMS OF HYPOGLYCEMIA NOTED. DENIES ANY PAIN AT THIS TIME. ALL NEEDS ATTENDED. SAFETY MEASURES IN PROGRESS.
[2016-06-27 07:26] LABS: CALCIUM 8.5 mg/dL (8.4-11.0); CREATININE 1.05 mg/dL (0.55-1.30)
[2016-06-27 07:31] LABS: BASOPHILS % (AUTO) 0.1 % (0.0-2.0); EOSINOPHILS # (AUTO) 0.2 K/uL (0.0-0.4); EOSINOPHILS % (AUTO) 3.5 % (0.0-4.0); HEMATOCRIT 31.2 % (36-54); LYMPHOCYTES # (AUTO) 1.5 K/uL (1.0-5.5); LYMPHOCYTES % (AUTO) 23.3 % (20.5-51.5); MEAN CORPUSCULAR HEMOGLOBIN 26 pg (27-31); MEAN CORPUSCULAR HGB CONC 32 % (32-36); MEAN CORPUSCULAR VOLUME 81 fL (79.0-98.0); MONOCYTES # (AUTO) 0.7 K/uL (0.0-1.0); MONOCYTES % (AUTO) 10.3 % (1.7-9.3); NEUTROPHILS % (AUTO) 62.8 % (40.0-70.0); PLATELET COUNT (AUTO) 266 K/uL (130-430); RED BLOOD CELL COUNT(AUTO) 3.84 MIL/uL (4.2-6.2); WHITE BLOOD COUNT (AUTO) 6.4 K/uL (4.8-10.8)
[2016-06-27] MEDS: IPRATROPIUM/ALBUTEROL SULFATE 3 ML AMPUL.NEB INH SCH ×3 (07:41→17:56)
[2016-06-27 07:53] LABS: POTASSIUM 2.6 mmol/L (3.5-5.1)
[2016-06-27] MEDS ORDERED: POTASSIUM CHLORIDE 20 MEQ TAB.PRT.SR PO ONE ×2 (08:00→10:00)
--- NOTE | 2016-06-27 08:04 | NUR ---
AM NOTE: SITTING UP AT BEDSIDE TAKING FOOD/FLUIDS WITHOUT DIFFICULTY. SPEECH CLEAR ANSWERS APPROP. DENIES PAIN. AM K+ 2.6. GIVEN 40MEQ OF K+ PO PER PROTOCOL. RESP. UNLABORED AND REGULAR WHILE SITTING AT BEDSIDE.
[2016-06-27 08:11] VITALS: BP 157/63; PULSE 61; RESP 20; TEMP 97.3; O2SAT 94
[2016-06-27] MEDS: POTASSIUM CHLORIDE 20 MEQ TAB.PRT.SR PO SCH (08:18)
[2016-06-27] MEDS: AMIODARONE HCL 200 MG TABLET PO SCH (09:09)
[2016-06-27] MEDS: glipiZIDE XL 5 MG TAB ( GLUCOTROL XL) PO SCH (09:10)
[2016-06-27] MEDS: DILTIAZEM HCL 180 MG CAP.SR.24H PO SCH (09:11)
[2016-06-27] MEDS: LOSARTAN POTASSIUM 50 MG TABLET (COZAAR) PO SCH (09:11)
[2016-06-27] MEDS: GABAPENTIN 100 MG CAPSULE PO SCH ×2 (09:12→14:51)
[2016-06-27] MEDS: ASPIRIN 81 MG TAB.CHEW PO SCH (09:12)
[2016-06-27] MEDS: CARVEDILOL 12.5 MG TABLET (COREG) PO SCH (09:12)
[2016-06-27] MEDS: FUROSEMIDE 40 MG TABLET PO SCH (09:12)
[2016-06-27] MEDS: ATORVASTATIN 20 MG TABLET PO SCH (09:12)
[2016-06-27] MEDS: OMEPRAZOLE 20 MG CAPSULE.DR (PriLOSEC) PO SCH (09:13)
[2016-06-27] MEDS: TOVIAZ 8 MG PO SCH (09:13)
[2016-06-27] MEDS: HYDROCHLOROTHIAZIDE 25 MG TABLET (HCTZ) PO SCH (09:13)
[2016-06-27] MEDS: ENOXAPARIN SODIUM 40 MG/0.4 ML SYRINGE SUBCUT SCH (09:15)
--- NOTE | 2016-06-27 11:24 | NUR ---
DC PLANNING: FAXED CLINICALS TO [facility] TEL# [phone]; FAX# [phone]. OLLIE CALLED FROM [facility], SHE SAID THEY HAVE TO DENY THIS PT BECAUSE THEY DON'T HAVE AN RN THIS WEEK TO ADMIT THE PATIENT. WILL TRY ANOTHER [facility]. Addendum: 06/27/16 at 1142 by Connie Pritchard RN OLLIE CALLED FROM [facility] ACCEPTING THE PATIENT BECAUSE THEY WERE ABLE TO GET AN RN TO EVALUATE THE PT.
[2016-06-27 12:25] VITALS: BP 132/64; PULSE 59; RESP 22; TEMP 97; O2SAT 95
--- NOTE | 2016-06-27 14:00 | NUR ---
Patient in bed restful at this time. Respirations are unlabored/regular. No distress noted. Appetite/fluids good at lunch. Voiding without difficulty. Patient aware of pending discharge this pm with regard to K+ level.
[2016-06-27 16:03] LABS: CALCIUM 8.7 mg/dL (8.4-11.0); CREATININE 1.19 mg/dL (0.55-1.30); POTASSIUM 3.4 mmol/L (3.5-5.1)
[2016-06-27 16:44] VITALS: BP 117/55; PULSE 58; RESP 18; TEMP 97.2; O2SAT 100
--- NOTE | 2016-06-27 16:45 | NUR ---
Potassium level 3.4 , no shortness breath , vitals sign stable, ambulate with steady gait.
[2016-06-27 16:50] VITALS: BP 128/69; PULSE 62; RESP 20; TEMP 97.4; O2SAT 94
--- NOTE | 2016-06-27 17:15 | NUR ---
D/C Patient Patient given medication reconciliation form and D/C instructions. Exit Care provided. Patient verbalized understanding. MD discussed with patient the results and treatment provided. Ambulatory with steady gait for discharge to home. Patient in stable condition, ID band removed. IV catheter removed, intact and dressing applied, no active bleeding. Patient educated on pain/medication management. All belongings sent with patient.
--- NOTE | 2016-06-28 14:48 | NUR ---
DISCHARGE PLANNING Received call from Judy at [facility] patient denied. Faxed home health referral to [facility] [phone] [phone] and [facility] [phone]. Will follow up. Addendum: 06/28/16 at 1647 by Kirti DANG Called [facility] [phone], intake dept currently on other line, advised DCP to call back in 5min. Addendum: 06/29/16 at 1047 by Kirti DANG spoke with Juan in intake dept at [facility] who sated unable to accept patient due to open Workers Comp Case that is open and not allowing for any and all oupt services to be arranged as needs to be arranged thru patient workers comp insurance claim. Addendum: 06/29/16 at 1454 by Kirti DANG Spoke with Juan at [facility] who will schedule nurse to visit patient tomorrow and requested W/C info be faxed once received from [facility] business office for follow up.
--- NOTE | 2016-06-29 12:30 | NUR ---
Discharge Planning/Discharge Follow Up Phone Call MAGISTERIAL DISTRICT JUDGE was asked to assist with determining patient's insurance status as home care agencies state Medicare is not patient's primary, but that patient has workman's comp. MAGISTERIAL DISTRICT JUDGE phoned patient, . He stated he has not had any workman's comp claims for a long time and is retired. MAGISTERIAL DISTRICT JUDGE phoned [employer] [place] [phone], and spoke with Sue. Patient had a claim (# [id number]) filed in 1985 for his knee. Nothing has been done on this claim since 1990. 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 MAGISTERIAL DISTRICT JUDGE phoned Idalmis in Admitting who provided a number to phone Medicare: [phone]. MAGISTERIAL DISTRICT JUDGE phoned but after a long wait, was disconnected. MAGISTERIAL DISTRICT JUDGE phoned Nadiya Akhil in the business office, . Medicare has been paying for patient. New information is now showing [employer] as primary insurance for patient. [facility] is awaiting info on BSC from Nadiya. [facility] has updated patient on the above. Patient stated he does not feel that home health is urgent at this time. Will continue to follow. Addendum: 06/29/16 at 1402 by Fanny Wang LCSW As per [facility], patient should have Medicare as primary. They recommend patient call Medicare coordination of benefits office [phone] to clarify insurance. Left a voicemail for patient. Addendum: 07/02/16 at 1346 by Fanny Wang LCSW MAGISTERIAL DISTRICT JUDGE phoned patient. Patient has not called Medicare yet but hopes to by early next week. His on 06/15/16 and he is not feeling ready to add more tasks. [facility] discussed. Patient's sister is assisting him and will now be his call or contact centre team leader: Migdalia Bazan, [address], [place] [phone], . [facility] notified Idalmis in Admitting. Patient has a follow up appointment with Dr Burch (cardio) on 07/09/16. He prefers not to follow up with his PCP. Patient prefers not to receive any more follow up calls, but will contact Medical Interpreter with any further questions or concerns. Addendum: 07/02/16 at 1355 by Fanny Wang LCSW Add Patient stated he had not heard from [facility] who had told NEEL Padilla that they would provide a home health visit. Patient preferred that MAGISTERIAL DISTRICT JUDGE not follow up and work to arrange a home health visit at this time. It seems this may be because he doesn't wish to think about insurance issues at this time. Patient probably would not object to a visit. Will notify NEEL Padilla.
== END 2016-06-27 17:15 | disposition home health service (06) | DRG 280 ==
LOC: SED 21:16 → STU 06-24 00:10
PROVIDERS: ADMIT General Practice; ATTEND General Practice
DX: I21.3 ST elevation (STEMI) myocardial infarction of unspecified site (principal); I50.43 Acute on chronic combined systolic (congestive) and diastolic (congestive) heart failure; D63.8 Anemia in other chronic diseases classified elsewhere; I25.10 Atherosclerotic heart disease of native coronary artery without angina pectoris; I48.91 Unspecified atrial fibrillation; J45.909 Unspecified asthma, uncomplicated; J44.9 Chronic obstructive pulmonary disease, unspecified; Z96.652 Presence of left artificial knee joint; I11.0 Hypertensive heart disease with heart failure; M19.90 Unspecified osteoarthritis, unspecified site; E11.42 Type 2 diabetes mellitus with diabetic polyneuropathy; E11.51 Type 2 diabetes mellitus with diabetic peripheral angiopathy without gangrene; E11.65 Type 2 diabetes mellitus with hyperglycemia; I25.2 Old myocardial infarction; Z95.1 Presence of aortocoronary bypass graft; Z79.4 Long term (current) use of insulin; Z90.49 Acquired absence of other specified parts of digestive tract; Z79.899 Other long term (current) drug therapy; Z86.73 Personal history of transient ischemic attack (TIA), and cerebral infarction without residual deficits
CPT/HCPCS: 36415; 36600; 71010; 80048; 80053; 80061; 82550-TC; 82803-TC; 82962; 83735-TC; 83880; 84443-TC; 84484; 85025; 85379; 87081; 93005; 94640; 94760; 96374; 99291; J1650; J1815; J1940

== ENCOUNTER 2016-07-04 15:44 | Inpatient (IN) | payer OTHER, BC ==
[~2016-07-04] VITALS: Ht 177.8 cm; Wt 112.5 kg
[~2016-07-04 15:44] MED LIST changes: +ALBU8.5H8 INH
[2016-07-04 15:45] VITALS: BP 149/77; PULSE 117; RESP 19; TEMP 97.7; O2SAT 95
--- NOTE | 2016-07-04 15:45 | NUR ---
Patient triaged and placed in waiting room. VSS and patient appears in no acute distress at this time. Accompanied by FAMILY, awaiting available bed, and MD notified of need for MSE.
[2016-07-04 16:33] LABS: CALCIUM 8.8 mg/dL (8.4-11.0); CREATININE 1.24 mg/dL (0.55-1.30)
[2016-07-04 16:39] LABS: ALBUMIN 3.4 g/dL (3.4-4.8); TOTAL BILIRUBIN 0.6 mg/dL (0.0-1.0); TOTAL PROTEIN, SERUM 6.7 g/dL (6.4-8.3)
[2016-07-04 16:45] LABS: BASOPHILS % (AUTO) 0.1 % (0.0-2.0); EOSINOPHILS % (AUTO) 0.1 % (0.0-4.0); HEMATOCRIT 32.2 % (36-54); LYMPHOCYTES # (AUTO) 0.4 K/uL (1.0-5.5); LYMPHOCYTES % (AUTO) 5.7 % (20.5-51.5); MEAN CORPUSCULAR HEMOGLOBIN 26 pg (27-31); MEAN CORPUSCULAR HGB CONC 31 % (32-36); MEAN CORPUSCULAR VOLUME 83 fL (79.0-98.0); MONOCYTES # (AUTO) 0.2 K/uL (0.0-1.0); MONOCYTES % (AUTO) 2.6 % (1.7-9.3); NEUTROPHILS % (AUTO) 91.5 % (40.0-70.0); PLATELET COUNT (AUTO) 193 K/uL (130-430); RED CELL DISTRIBUTION WIDTH 15.7 % (9.0-15.0); WHITE BLOOD COUNT (AUTO) 7.6 K/uL (4.8-10.8)
--- NOTE | 2016-07-04 17:15 | NUR ---
BROUGHT BACK TO BED #8 AND REPORT GIVEN TO JASMINE
--- NOTE | 2016-07-04 17:16 | NUR ---
DR LOPEZ AT BEDSIDE FOR EVALUATION
--- NOTE | 2016-07-04 17:17 | NUR ---
Patient to ER C/O generalized weakness worsening for the past 3-4 days. States Hx CHF, also C/O dyspnea with exhertion. AAOx4, unlabored breathing, no signs of acute distress. +1 pitting edema lower extremities
--- NOTE | 2016-07-04 17:21 | NUR ---
# 20 gauge angiocath placed to RIGHT FOREARM. Use of asceptic technique. Opsite placed over site. Blood return noted. Flushed with 10 cc of normal saline. No evidence of infiltration noted. Patient tolerated well.
[2016-07-04] MEDS ORDERED: FUROSEMIDE 100 MG/10 ML VIAL ONE (17:29)
[2016-07-04] MEDS ORDERED: cefTRIAXone 1 GM IVPB PREMIX 50 ML IV ONE (17:30)
[2016-07-04] MEDS ORDERED: FUROSEMIDE 40 MG/4 ML VIAL IVP ONE (17:30)
[2016-07-04] MEDS ORDERED: FUROSEMIDE 100 MG in D5W 90 ML IV ONE (17:30)
[2016-07-04] MEDS ORDERED: MORPHINE 2 MG/ML INJ. SYRINGE IVP PRN (17:45)
[2016-07-04] MEDS ORDERED: DOCUSATE SODIUM 100 MG CAPSULE PO PRN (17:45)
[2016-07-04] MEDS ORDERED: MAGNESIUM SULFATE 50 ML IV PRN (17:45)
[2016-07-04] MEDS ORDERED: FURO-149 PO (17:45)
[2016-07-04] MEDS ORDERED: ZOLPIDEM TARTRATE 5 MG TABLET PO PRN (17:45)
[2016-07-04] MEDS ORDERED: ACETAMINOPHEN 325 MG TABLET PO PRN (17:45)
[2016-07-04] MEDS ORDERED: LORazepam 2 MG/ML VIAL IVP PRN (17:45)
[2016-07-04] MEDS ORDERED: DEXTROSE 50% JECT 50 ML DISP.SYRIN IVP PRN (17:45)
[2016-07-04] MEDS ORDERED: POTASSIUM CHLORIDE 10 MEQ TAB.PRT.SR PO PRN (17:45)
[2016-07-04] MEDS ORDERED: PRED20TA PO (17:45)
[2016-07-04] MEDS ORDERED: ONDANSETRON HCL 4 MG/2 ML VIAL IVP PRN (17:45)
[2016-07-04] MEDS ORDERED: ALBUTEROL MDI INHALATION 8 GM INH INH PRN (17:45)
[2016-07-04] MEDS ORDERED: ALBUTEROL SULFATE 0.083% 2.5 MG/3 ML VIAL.NEB INH PRN (17:45)
--- NOTE | 2016-07-04 17:52 | NUR ---
Medication reconciliation completed with information provided by MEDICATIONS BROUGHT IN BY PT. Any prior medication reconciliation on file was reviewed and corrected.
[2016-07-04 17:56] LABS: BILIRUBIN,URINE NEGATIVE (NEGATIVE); BLOOD, URINE NEGATIVE (NEGATIVE); CLARITY/URINE CLEAR (CLEAR); COLOR,URINE YELLOW (YELLOW); GLUCOSE,URINE 3+ (NEGATIVE); KETONES,URINE TRACE (NEGATIVE); LEUKOCYTE ESTERASE ,URINE NEGATIVE (NEGATIVE); NITRITE, URINE NEGATIVE (NEGATIVE); PROTEIN URINE 1+ (NEGATIVE)
--- NOTE | 2016-07-04 18:00 | NUR ---
Patient will be admitted to care of DR MCDERMOTT. Admitted to TELE IN unit. Will go to room 135. Belongings list completed. Summary report printed. Report given to AMPARO.
[2016-07-04 18:05] LABS: BACTERIA,URINE FEW /HPF (None Seen); RBC,URINE NONE SEEN /HPF (0-3); WBC,URINE 0-3 /HPF (0-3)
[2016-07-04 18:06] LABS: MUCUS,URINE None Seen /LPF (None Seen)
--- NOTE | 2016-07-04 18:09 | NUR ---
Transfer to [facility] via ACLS protocol. Licensed nurse present. IV present no signs or symptoms of infiltration.
--- NOTE | 2016-07-04 18:25 | NUR ---
ADMISSION NOTE Received patient from ER via gurney. Patient admitted with diagnosis of CHF. Patient is awake, alert, oriented X 4. Patient oriented to hospital room, call light, toileting, pain management and safety-teach back done. Patient informed that Brayden will be his nurse and that their room number is 120 B. Personal belongings checked and Belongings List documented. Call light within reach.
[2016-07-04 18:30] VITALS: BP 156/88; PULSE 115; RESP 18; TEMP 97.6; O2SAT 97
--- NOTE | 2016-07-04 19:30 | NUR ---
PM ASSESS PT AWAKE, FAMILY AT BEDSIDE, A/OX4. RA, LUNG SOUNDS DIMINISHED BILAT, O2 SAT 97%. ST ON THE MONITOR. IV SITE ON THE RFA 20G, INTACT AND PATENT, SL. PT ABLE TO STAND W/ NO ASSIST. POC DISCUSSED W/ FAMILY, STATED UNDERSTANDING. ORIENTED TO CALL LIGHT AND W/IN REACH, SAFETY PRECAUTIONS IN PLACE, WILL CONTINUE TO MONITOR.
[2016-07-04] MEDS ORDERED: CARVEDILOL 12.5 MG TABLET (COREG) PO SCH (21:00)
[2016-07-04] MEDS ORDERED: CILOSTAZOL 50 MG TABLET (PLETAL) PO SCH (21:00)
[2016-07-04] MEDS ORDERED: AMIODARONE HCL 200 MG TABLET PO SCH (21:00)
[2016-07-04] MEDS: glipiZIDE XL 5 MG TAB ( GLUCOTROL XL) PO SCH (21:35)
[2016-07-04] MEDS: GABAPENTIN 100 MG CAPSULE PO SCH (21:37)
[2016-07-04] MEDS: HEPARIN SODIUM,PORCINE 5000 UNITS/ML VIAL SUBCUT SCH (21:42)
[2016-07-04] MEDS: INSULIN ASPART 100 UNITS/ML, 10 ML VIAL (NovoLOG) SUBCUT PRN (21:43)
--- NOTE | 2016-07-04 21:45 | NUR ---
MED/ BS BS 295, 6UNITS NOVOLOG GIVEN PER SLIDING SCALE, NO HYPO/HYPERGLYCEMIA. DUE MEDS GIVEN, PT TOLERATING WELL. CALL LIGHT W/IN REACH, SAFETY PRECAUTIONS IN PLACE, WILL CONTINUE TO MONITOR.
[2016-07-04 23:37] VITALS: BP 149/92; PULSE 118
[2016-07-05 00:08] VITALS: BP 148/98; PULSE 115; RESP 20; TEMP 97.2; O2SAT 97
--- NOTE | 2016-07-05 01:55 | NUR ---
CONSULT: DR PRICE Consult was called, re:sob, copd sw: Bisi
--- NOTE | 2016-07-05 02:07 | NUR ---
CONSULT: DR MARIN Consult was called, re: CHF sw: Bisi
--- NOTE | 2016-07-05 02:08 | NUR ---
SLEEPING PILL PT AWAKE, REQUESTED SLEEPING PILL, AMBIEN GIVEN, PT TOLERATING WELL. CALL LIGHT W/IN REACH, SAFETY PRECAUTIONS IN PLACE, WILL CONTINUE TO MONITOR.
[2016-07-05 04:28] VITALS: BP 143/97; PULSE 120; RESP 18; TEMP 98.7; O2SAT 98
--- NOTE | 2016-07-05 05:00 | NUR ---
ROUNDS PT SLEEPING, CHEST RISING AND FALLING. CALL LIGHT W/IN REACH, SAFETY PRECAUTIONS IN PLACE, WILL CONTINUE TO MONITOR.
[2016-07-05 06:52] LABS: CALCIUM 8.5 mg/dL (8.4-11.0); CREATININE 0.94 mg/dL (0.55-1.30)
[2016-07-05 06:54] LABS: BASOPHILS % (AUTO) 0.1 % (0.0-2.0); EOSINOPHILS # (AUTO) 0.1 K/uL (0.0-0.4); EOSINOPHILS % (AUTO) 1.2 % (0.0-4.0); HEMATOCRIT 29.5 % (36-54); HEMOGLOBIN 9.4 g/dL (14.0-18.0); LYMPHOCYTES # (AUTO) 1.7 K/uL (1.0-5.5); MEAN CORPUSCULAR HEMOGLOBIN 26 pg (27-31); MEAN CORPUSCULAR HGB CONC 32 % (32-36); MEAN CORPUSCULAR VOLUME 82 fL (79.0-98.0); MONOCYTES # (AUTO) 0.9 K/uL (0.0-1.0); MONOCYTES % (AUTO) 9.5 % (1.7-9.3); NEUTROPHILS # (AUTO) 6.5 K/uL (1.8-7.7); NEUTROPHILS % (AUTO) 70.2 % (40.0-70.0); PLATELET COUNT (AUTO) 199 K/uL (130-430); RED BLOOD CELL COUNT(AUTO) 3.61 MIL/uL (4.2-6.2); RED CELL DISTRIBUTION WIDTH 15.6 % (9.0-15.0); WHITE BLOOD COUNT (AUTO) 9.2 K/uL (4.8-10.8)
--- NOTE | 2016-07-05 07:44 | NUR ---
CLOSING ALL NEEDS MET. REPORT GIVEN AT BEDSIDE W/ SBAR TO NURSE JOANNA RN.
[2016-07-05 08:10] VITALS: BP 153/98; PULSE 128; RESP 24; TEMP 98.8; O2SAT 98
--- NOTE | 2016-07-05 08:10 | NUR ---
INITIAL ROUNDS Received pt AAAox4, no s/s resp distress, no c/o pain or discomfort. Pt states he gets SOB when ambulating. Plan of care for the day reviewed with pt-pt verbalized his understanding. Pain management, disease process, skin and safety discussed-teach back done. Contact phone number explained, call light within reach.
[2016-07-05] MEDS ORDERED: POTASSIUM CHLORIDE 20 MEQ TAB.PRT.SR PO SCH (08:15)
[2016-07-05 08:53] LABS: ABG TOTAL HEMOGLOBIN 10.9 G/dL (12.0-18.0); BLOOD GAS BASE EXCESS 4.7 mmol/L (-3.0-3.0); BLOOD GAS PH 7.459 (7.350-7.450)
[2016-07-05 08:54] LABS: BLOOD GAS COHb% 0.1 % (0.5-1.5); BLOOD GAS HHB 4.3 % (0.0-6.0); BLOOD O2Hb% 95.1 % (94.0-97.0)
[2016-07-05] MEDS ORDERED: LOSARTAN POTASSIUM 50 MG TABLET (COZAAR) PO SCH (09:00)
[2016-07-05] MEDS ORDERED: DILTIAZEM HCL 180 MG CAP.SR.24H PO SCH (09:00)
[2016-07-05] MEDS ORDERED: amLODIPine BESYLATE 10 MG TABLET PO SCH (09:00)
[2016-07-05] MEDS ORDERED: HYDROCHLOROTHIAZIDE 12.5 MG CAPSULE (HCTZ) PO SCH (09:00)
[2016-07-05] MEDS ORDERED: LOSARTAN/HYDROCHLOROTHIAZIDE TAB (HYZAAR 50-12.5 MG) PO SCH (09:00)
--- NOTE | 2016-07-05 10:30 | NUR ---
ROUNDS Pt sitting up in bedside chair with no c/o SOB-pt did ambulate with physical therapy earlier-pt stated he got tired fast. Needs met, call light within reach.
[2016-07-05] MEDS: FUROSEMIDE 40 MG/4 ML VIAL IVP SCH ×2 (10:39→21:36)
[2016-07-05] MEDS: LOSARTAN POTASSIUM 50 MG TABLET (COZAAR) PO SCH (10:40)
[2016-07-05] MEDS: GABAPENTIN 100 MG CAPSULE PO SCH ×3 (10:41→21:36)
[2016-07-05] MEDS: ATORVASTATIN 20 MG TABLET PO SCH (10:41)
[2016-07-05] MEDS: glipiZIDE XL 5 MG TAB ( GLUCOTROL XL) PO SCH ×2 (10:42→21:36)
[2016-07-05] MEDS: CARVEDILOL 12.5 MG TABLET (COREG) PO SCH ×2 (10:44→21:35)
[2016-07-05] MEDS: HEPARIN SODIUM,PORCINE 5000 UNITS/ML VIAL SUBCUT SCH ×2 (10:46→21:45)
[2016-07-05] MEDS: POTASSIUM CHLORIDE 20 MEQ TAB.PRT.SR PO SCH ×2 (10:47→21:36)
[2016-07-05] MEDS ORDERED: cefTRIAXone 1 GM in D5W 50 ML IV ONE (12:00)
[2016-07-05] MEDS ORDERED: PREDNISONE 20 MG TABLET PO ONE (12:00)
--- NOTE | 2016-07-05 14:34 | NUR ---
ROUNDS Pt sitting up in bedside chair with no c/o SOB, no c/o pain or discomfort. Needs met, call light within reach.
[2016-07-05] MEDS: IPRATROPIUM BROM 0.5 MG/2.5 ML VIAL.NEB (ATROVENT) INH SCH ×2 (15:00→19:27)
[2016-07-05] MEDS: LevALBUTEROL HCL 1.25 MG/0.5 ML *CONC.* VIAL.NEB (XOPENEX CONC.) INH SCH ×2 (15:00→19:27)
[2016-07-05 16:15] VITALS: BP 135/78; PULSE 125; RESP 18; TEMP 98.4; O2SAT 99
--- NOTE | 2016-07-05 16:30 | NUR ---
ROUNDS Pt resting quietly in bed with no s/s resp distress, no c/o pain or discomfort. No changes. Call light within reach.
[2016-07-05] MEDS: RIVAROXABAN 15 MG TABLET PO SCH (17:51)
[2016-07-05] MEDS: INSULIN ASPART 100 UNITS/ML, 10 ML VIAL (NovoLOG) SUBCUT PRN ×2 (17:53→21:50)
--- NOTE | 2016-07-05 18:10 | NUR ---
REQUESTS INHALER Pt given Albuterol inhaler as ordered PRN for SOB.
--- NOTE | 2016-07-05 18:45 | NUR ---
CLOSING NOTE Pt sitting up on bedside visiting with his family, no c/o SOB, no s/s resp distress, no c/o pain or discomfort. Needs met, call light within reach.
--- NOTE | 2016-07-05 20:00 | NUR ---
Initial note A/O x 4, no SOB, no chest pain, denied pain and denied palpitation. Skin warm to touch, IV #20 at R FA, patent, free of infection or infiltration. Diminished lung sounds lower lobes. No s/s of hyper or hypoglycemia. +2 edema on R foot and +1 edema at L foot with +2 radial and pedal pulses. Active bowel sounds present all quadrants. Need one person assistance for ambulation. Call light within reach, will continue to monitor patient.
[2016-07-05 20:10] VITALS: BP 128/93; PULSE 120; RESP 18; TEMP 97.4; O2SAT 93
--- NOTE | 2016-07-05 22:00 | NUR ---
Round A/O x 4, no SOB, no chest pain, denied pain and denied palpitation. Skin warm to touch, IV #20 at R FA, patent, free of infection or infiltration. Diminished lung sounds lower lobes. No s/s of hyper or hypoglycemia. Medications given and provided night time snack. +2 edema on R foot and +1 edema at L foot with +2 radial and pedal pulses. Active bowel sounds present all quadrants. Need one person assistance for ambulation. Call light within reach, will continue to monitor patient.
[2016-07-06] VITALS: BP 137/76; PULSE 124; RESP 17; TEMP 98.6; O2SAT 96
--- NOTE | 2016-07-06 | NUR ---
Round A/O x 4, no SOB, no chest pain, denied pain and denied palpitation. Skin warm to touch, IV #20 at R FA, patent, free of infection or infiltration. Resting/sleeping in bed. No s/s of hyper or hypoglycemia. +2 edema on R foot and +1 edema on L foot with +2 pedal pulses. Need one person assistance for ambulation. Call light within reach, will continue to monitor patient.
[2016-07-06] MEDS: LevALBUTEROL HCL 1.25 MG/0.5 ML *CONC.* VIAL.NEB (XOPENEX CONC.) INH SCH ×4 (01:00→19:34)
[2016-07-06] MEDS: IPRATROPIUM BROM 0.5 MG/2.5 ML VIAL.NEB (ATROVENT) INH SCH ×4 (01:01→19:34)
--- NOTE | 2016-07-06 02:00 | NUR ---
Round A/O x 4, no SOB, no chest pain, no respiratory distress. Resting/sleeping in bed. No s/s of hyper or hypoglycemia. Edema on BLE. Call light within reach, will continue to monitor patient.
[2016-07-06 03:43] VITALS: BP 140/86; PULSE 123; RESP 16; TEMP 97.3; O2SAT 96
--- NOTE | 2016-07-06 04:00 | NUR ---
Round A/O x 4, no SOB, no chest pain, no respiratory distress. Sleeping in bed. Easy to awake. No s/s of hyper or hypoglycemia. Edema on BLE. Call light within reach, will continue to monitor patient.
--- NOTE | 2016-07-06 06:10 | NUR ---
Closing note A/O x 4, no SOB, no chest pain, no respiratory distress. Sitting on the chair. No s/s of hyper or hypoglycemia. Edema on BLE noted. Call light within reach, education provided, will continue to monitor patient.
[2016-07-06 06:22] LABS: BASOPHILS % (AUTO) 0.2 % (0.0-2.0); EOSINOPHILS # (AUTO) 0.1 K/uL (0.0-0.4); EOSINOPHILS % (AUTO) 0.6 % (0.0-4.0); HEMATOCRIT 33.3 % (36-54); HEMOGLOBIN 10.2 g/dL (14.0-18.0); LYMPHOCYTES # (AUTO) 1.6 K/uL (1.0-5.5); LYMPHOCYTES % (AUTO) 17.6 % (20.5-51.5); MEAN CORPUSCULAR HEMOGLOBIN 25 pg (27-31); MEAN CORPUSCULAR HGB CONC 31 % (32-36); MEAN CORPUSCULAR VOLUME 83 fL (79.0-98.0); MONOCYTES # (AUTO) 0.6 K/uL (0.0-1.0); MONOCYTES % (AUTO) 6.7 % (1.7-9.3); NEUTROPHILS # (AUTO) 6.8 K/uL (1.8-7.7); NEUTROPHILS % (AUTO) 74.9 % (40.0-70.0); PLATELET COUNT (AUTO) 205 K/uL (130-430); RED BLOOD CELL COUNT(AUTO) 4.02 MIL/uL (4.2-6.2); RED CELL DISTRIBUTION WIDTH 15.9 % (9.0-15.0); WHITE BLOOD COUNT (AUTO) 9.1 K/uL (4.8-10.8)
[2016-07-06] MEDS: INSULIN ASPART 100 UNITS/ML, 10 ML VIAL (NovoLOG) SUBCUT PRN ×3 (06:22→22:41)
[2016-07-06 06:28] LABS: CALCIUM 8.4 mg/dL (8.4-11.0); POTASSIUM 3.8 mmol/L (3.5-5.1)
--- NOTE | 2016-07-06 07:50 | NUR ---
Am Rounds Received report at bedside. Patient received awake sitting up in chair. Pt breathing even and unlabored, currently receiving his breathing treatment. BP stable, but elevated HR in the 120's. Patient IV patient with no infiltration noted and flushing well. Pt has call light in reach. Will cont to monitor.
--- NOTE | 2016-07-06 08:03 | NUR ---
notified pt of new medication orders, and is aware of pts elevated HR.
--- NOTE | 2016-07-06 08:03 | NUR ---
DR SINA MARIN IS IN THE ROOM WITH THE PT
[2016-07-06 08:04] VITALS: BP 139/77; PULSE 127; RESP 18; TEMP 97.2; O2SAT 97
[2016-07-06 08:23] VITALS: BP 145/83; PULSE 124; RESP 20; TEMP 98.3; O2SAT 95
[2016-07-06] MEDS ORDERED: DILTIAZEM HCL 240 MG CAP.SR.24H PO SCH (09:00)
[2016-07-06] MEDS ORDERED: cefTRIAXone 1 GM in D5W 50 ML IV SCH (09:00)
[2016-07-06] MEDS: GABAPENTIN 100 MG CAPSULE PO SCH ×3 (09:29→22:19)
[2016-07-06] MEDS: CARVEDILOL 12.5 MG TABLET (COREG) PO SCH ×2 (09:29→22:20)
--- NOTE | 2016-07-06 09:29 | NUR ---
DISCHARGE PLANNING Received call from Juan at [facility] [phone] who made several attempts to contact patient to arrange courtesy visit. Juan made aware of patient re-admission and was provided with patient sister Migdalia Bazan to call and assist in making correction in patient Medicare CWF for home health. Juan will notify [facility] with update. Addendum: 07/06/16 at 1141 by Kirti DANG Faxed referral to [facility] . Will follow up. Addendum: 07/06/16 at 1433 by Kirti Croft DP Spoke with Karen in admitting at [facility] who is unable to accept patient due to Medicare CWF states primary payor [employer] PPO and facility not contracted. LANDEN Santos made aware patient needs to call Medicare so that CWF can be corrected for discharge planning. LANDEN Santos will speak with patient. Called [facility] PPO [phone] spoke with Taina who will fax coordination of benefits showing Medicare primary call Ref#[id number]. Addendum: 07/06/16 at 1621 by Danielle Ignacio RN Spoke w pt @ bedside & informed needed to call Medicare to clarify insurance. Gave pt Medicare ph#, states will call.
[2016-07-06] MEDS: PREDNISONE 20 MG TABLET PO SCH (09:30)
[2016-07-06] MEDS: ATORVASTATIN 20 MG TABLET PO SCH (09:30)
[2016-07-06] MEDS: POTASSIUM CHLORIDE 20 MEQ TAB.PRT.SR PO SCH ×2 (09:31→22:18)
[2016-07-06] MEDS: glipiZIDE XL 5 MG TAB ( GLUCOTROL XL) PO SCH ×2 (09:31→22:17)
[2016-07-06] MEDS: LOSARTAN POTASSIUM 50 MG TABLET (COZAAR) PO SCH (09:32)
[2016-07-06] MEDS: FUROSEMIDE 40 MG/4 ML VIAL IVP SCH ×2 (09:34→22:17)
[2016-07-06] MEDS: HEPARIN SODIUM,PORCINE 5000 UNITS/ML VIAL SUBCUT SCH ×2 (09:36→22:29)
--- NOTE | 2016-07-06 10:32 | NUR ---
RN ROUNDS PT SITTING IN A CHAIR WATCHING TV WITH 2 FAMILY MEMBERS. NO REPORT OF PAIN. BED IN LOWEST POSITION AND CALL LIGHT WITHIN REACH
[2016-07-06] MEDS ORDERED: LACTOBACILLUS RHAMNOSUS GG 1 CAP CAPSULE PO ONE (11:30)
--- NOTE | 2016-07-06 11:31 | NUR ---
Hygiene Pt assisted to change gown and clean up. Pt sitting back in chair, partial linen change done, family at bedside.
[2016-07-06 12:00] VITALS: BP 116/67; PULSE 127; RESP 18; TEMP 97.2; O2SAT 96
[2016-07-06] MEDS: LEVOFLOXACIN 500 MG/D5W 100 ML IV SCH (12:02)
--- NOTE | 2016-07-06 12:06 | NUR ---
DC PLANNING Discussed dc planning w Dr Holman in [facility], [facility] plans for dc to snf tomorrow. [facility] has discussed w pt & family & want [facility]. Spoke w pt, sister & family @ bedside, [facility] has discussed dc plan w Dr Holman & agreeable w SNF want [facility]. Informed had choices & gave list of SNF's & pamphlet for [facility]. Pt [facility] does not have 2nd choice wants to go to [facility], signed choices letter. Informed diana Cotto financial planner.
--- NOTE | 2016-07-06 13:15 | NUR ---
RN ROUNDS P/T IS IN ROOM WITH PT. PT IS SITTING IN CHAIR AND STATED HE IS COMFORTABLE AND W/O PAIN. CALL LIGHT WITHIN REACH
[2016-07-06 14:32] VITALS: Ht 177.8 cm; Wt 112.5 kg
--- NOTE | 2016-07-06 14:57 | NUR ---
PHYSICAL THERAPY CO-SIGN The Physical Therapy Progress Notes documented by Information Resources Director have been reviewed. I CONCUR W/MECHANICAL FACILITIES TECHNICIAN NOTE; CONT PER TX PLAN Reviewed/Co-Signed by: Yany Drake PT Documentation Done by: UMA VILLATORO MECHANICAL FACILITIES TECHNICIAN Addendum: 07/06/16 at 1458 by Yany Drake PT Amended: Links added.
--- NOTE | 2016-07-06 15:21 | NUR ---
ROUNDS: Pt resting , due meds given, denies any needs. Call light in reach. Pt sitting in chair.
[2016-07-06 16:00] VITALS: BP 111/57; PULSE 42; RESP 18; TEMP 97.9; O2SAT 98
--- NOTE | 2016-07-06 17:30 | NUR ---
rounds pt sitting in chair having dinner. Family present. accucheck done and insulin given per order.
[2016-07-06] MEDS: RIVAROXABAN 15 MG TABLET PO SCH (17:46)
--- NOTE | 2016-07-06 19:50 | NUR ---
RN ROUNDS PT IN BED AND SAID HE IS COMFORTABLE. BED IN LOWEST POSITION AND CALL LIGHT IS WITHIN REACH
--- NOTE | 2016-07-06 19:50 | NUR ---
CLOSING NOTE ENDORSED AT BEDSIDE TO SHELLI. PT STABLE AND WATCHING TV.
--- NOTE | 2016-07-06 20:00 | NUR ---
AAOX4. IN NO APPARENT DISTRESS. VSS. DENIES PAIN, SOB. SITTING ON CHAIR, WATCHING TV. AFIB-FLUTTER.
--- NOTE | 2016-07-06 22:00 | NUR ---
STILL SITTING ON CHAIR. PLEASANT. CONVERSANT. WATCHING TV.
[2016-07-06] MEDS: LACTOBACILLUS RHAMNOSUS GG 1 CAP CAPSULE PO SCH (22:18)
--- NOTE | 2016-07-06 23:00 | NUR ---
ACCU-CHEK 209, 4 UNITS NOVOLOG INSULIN SQ GIVEN PER SLIDING SCALE COV. BACK TO BED WITHOUT INCIDENCE.
[2016-07-07] MEDS: IPRATROPIUM BROM 0.5 MG/2.5 ML VIAL.NEB (ATROVENT) INH SCH ×3 (00:38→13:21)
[2016-07-07] MEDS: LevALBUTEROL HCL 1.25 MG/0.5 ML *CONC.* VIAL.NEB (XOPENEX CONC.) INH SCH ×3 (00:39→13:21)
[2016-07-07 01:14] VITALS: BP 127/78; PULSE 120; RESP 18; TEMP 97.4; O2SAT 98
--- NOTE | 2016-07-07 03:00 | NUR ---
SLEPT FOR LONG PERIODS OF TIME. OOB AT TIMES TO BR TO URINATE.
[2016-07-07 03:44] VITALS: BP 141/61; PULSE 115; RESP 18; TEMP 97.5; O2SAT 97
--- NOTE | 2016-07-07 06:00 | NUR ---
AWAKE, OOB SITTING IN CHAIR AT BEDSIDE. NO DISTRESS NOTED. DENIES PAIN/ SOB. LOOKING FORWARD TO BREAKFAST. NO COMPLAINTS OFFERED AT THIS TIME. REMAINS IN GUARDED BUT STABLE CONDITION.
--- NOTE | 2016-07-07 06:30 | NUR ---
ACCU-CHEK 80, NO INSULIN DUE PER SLIDING SCALE COV.
[2016-07-07] MEDS: INSULIN ASPART 100 UNITS/ML, 10 ML VIAL (NovoLOG) SUBCUT PRN (06:50)
[2016-07-07 07:09] LABS: BASOPHILS % (AUTO) 0.2 % (0.0-2.0); EOSINOPHILS # (AUTO) 0.2 K/uL (0.0-0.4); EOSINOPHILS % (AUTO) 2.2 % (0.0-4.0); HEMATOCRIT 32.1 % (36-54); HEMOGLOBIN 10.1 g/dL (14.0-18.0); LYMPHOCYTES # (AUTO) 2.3 K/uL (1.0-5.5); LYMPHOCYTES % (AUTO) 23.5 % (20.5-51.5); MEAN CORPUSCULAR HEMOGLOBIN 26 pg (27-31); MEAN CORPUSCULAR HGB CONC 31 % (32-36); MEAN CORPUSCULAR VOLUME 82 fL (79.0-98.0); MONOCYTES # (AUTO) 0.9 K/uL (0.0-1.0); MONOCYTES % (AUTO) 9.2 % (1.7-9.3); NEUTROPHILS # (AUTO) 6.6 K/uL (1.8-7.7); NEUTROPHILS % (AUTO) 64.9 % (40.0-70.0); PLATELET COUNT (AUTO) 209 K/uL (130-430); RED BLOOD CELL COUNT(AUTO) 3.93 MIL/uL (4.2-6.2); RED CELL DISTRIBUTION WIDTH 15.4 % (9.0-15.0); WHITE BLOOD COUNT (AUTO) 9.9 K/uL (4.8-10.8)
[2016-07-07 07:25] VITALS: BP 129/78; PULSE 108
[2016-07-07 07:27] LABS: CALCIUM 8.7 mg/dL (8.4-11.0); CREATININE 1.03 mg/dL (0.55-1.30); POTASSIUM 3.8 mmol/L (3.5-5.1)
--- NOTE | 2016-07-07 08:00 | NUR ---
RN ROUNDS PT SITTING IN CHAIR EATING BREAKFAST. PT STATED HE IS COMFORTABLE. CALL LIGHT WITHIN REACH
--- NOTE | 2016-07-07 08:23 | NUR ---
DR TOMAS ANDINO Md spoke to the patient at bedside. He also stated he will be increasing the Diltazem dose to 300mg.
[2016-07-07 08:29] VITALS: BP 129/78; PULSE 122; RESP 16; TEMP 96.5; O2SAT 97
--- NOTE | 2016-07-07 08:49 | NUR ---
DISCHARGE PLANNING Spoke with Shyann at [facility] patient accepted assigned to room 22B RN to report , bed available anytime. CM made aware. Called [facility] BLS transport on will call. Placed transportation packet in nurses station.
[2016-07-07] MEDS ORDERED: DILTIAZEM HCL 240 MG CAP.SR.24H PO SCH (09:00)
--- NOTE | 2016-07-07 09:00 | NUR ---
DR MARIANA ANDINO MD SPOKE TO THE PATIENT AND WILL BE DISCHARGING PATIENT.
[2016-07-07] MEDS: FUROSEMIDE 40 MG/4 ML VIAL IVP SCH (09:43)
[2016-07-07] MEDS: CARVEDILOL 12.5 MG TABLET (COREG) PO SCH (09:47)
[2016-07-07] MEDS: GABAPENTIN 100 MG CAPSULE PO SCH (09:48)
[2016-07-07] MEDS: glipiZIDE XL 5 MG TAB ( GLUCOTROL XL) PO SCH (09:48)
[2016-07-07] MEDS: ATORVASTATIN 20 MG TABLET PO SCH (09:50)
[2016-07-07] MEDS: POTASSIUM CHLORIDE 20 MEQ TAB.PRT.SR PO SCH (09:50)
[2016-07-07] MEDS: PREDNISONE 20 MG TABLET PO SCH (09:50)
[2016-07-07] MEDS: LACTOBACILLUS RHAMNOSUS GG 1 CAP CAPSULE PO SCH (09:51)
[2016-07-07] MEDS: LOSARTAN POTASSIUM 50 MG TABLET (COZAAR) PO SCH (09:52)
--- NOTE | 2016-07-07 10:00 | NUR ---
AMPARO ROUNDS PT IS SITTING IN CHAIR. FAMILY IS PRESENT. T STATED HE IS COMFORTABLE AND NOT IN PAIN Addendum: 07/07/16 at 1639 by Amador Sears RN PT STATED HE IS COMFORTABLE AND NOT IN PAIN
[2016-07-07] MEDS: LEVOFLOXACIN 500 MG/D5W 100 ML IV SCH (11:58)
[2016-07-07 12:00] VITALS: BP 97/65; PULSE 124; RESP 18; TEMP 97.1; O2SAT 98
--- NOTE | 2016-07-07 12:00 | NUR ---
RN ROUNDS PATIENT STILL SITTING IN CHAIR AND COMFORTABLE. PREPARING FOR DISCHARGE. IV PATENT AND INTACT. FLUSHED AND COVERED WITH A CAP.
[2016-07-07 13:06] VITALS: BP 96/57; PULSE 62; RESP 18; TEMP 96.3; O2SAT 96
--- NOTE | 2016-07-07 13:30 | NUR ---
TRANSFER REPORT CALLOUT CALLED DOROTHY AT [facility] AND PROVIDED TRANSFER REPORT. SHE SAID PT IS ASSIGNED TO BED 24B
--- NOTE | 2016-07-07 13:55 | NUR ---
DISCHARGE NOTE PROVIDED DISCHARGE EDUCATION TO PT AND RECEIVED SIGNED PT INSTRUCTION SHEET. PT BELONGINGS ACCOUNTED FOR AND PRESENT WITH PT. IV INTACT, PATENT AND FLUSHES WELL, AND WAS TRANSPORTED WITH IT PRESENT. PROVIDED REPORT TO S TEST DESIGNER
--- NOTE | 2016-07-07 15:35 | NUR ---
PHYSICAL THERAPY CO-SIGN The Physical Therapy Progress Notes documented by Activity Specialist have been reviewed. Reviewed/Co-Signed by: Clarisse Ryan, PT Documentation Done by: Epi Morales PTA I concur with the documentation of this MILL TENDER. Plan: continue PT as per plan of care. Addendum: 07/07/16 at 1536 by Clarisse Ryan PT Amended: Links added.
== END 2016-07-07 14:05 | DRG 291 ==
LOC: SED 15:44 → STU 18:02
PROVIDERS: ADMIT General Practice; ATTEND General Practice
DX: I11.0 Hypertensive heart disease with heart failure (principal); J69.0 Pneumonitis due to inhalation of food and vomit; N17.0 Acute kidney failure with tubular necrosis; J44.1 Chronic obstructive pulmonary disease with (acute) exacerbation; J44.0 Chronic obstructive pulmonary disease with (acute) lower respiratory infection; I50.43 Acute on chronic combined systolic (congestive) and diastolic (congestive) heart failure; E11.65 Type 2 diabetes mellitus with hyperglycemia; I25.10 Atherosclerotic heart disease of native coronary artery without angina pectoris; E11.51 Type 2 diabetes mellitus with diabetic peripheral angiopathy without gangrene; E11.42 Type 2 diabetes mellitus with diabetic polyneuropathy; E66.9 Obesity, unspecified; D63.8 Anemia in other chronic diseases classified elsewhere; I48.91 Unspecified atrial fibrillation; R26.81 Unsteadiness on feet; E87.6 Hypokalemia; J45.909 Unspecified asthma, uncomplicated; Z96.653 Presence of artificial knee joint, bilateral; I25.2 Old myocardial infarction; Z95.1 Presence of aortocoronary bypass graft; Z79.4 Long term (current) use of insulin; Z91.81 History of falling; Z90.49 Acquired absence of other specified parts of digestive tract; Z68.35 Body mass index [BMI] 35.0-35.9, adult; Z79.899 Other long term (current) drug therapy; Z86.73 Personal history of transient ischemic attack (TIA), and cerebral infarction without residual deficits
CPT/HCPCS: 36415; 36600; 71010; 80048; 80053; 81000-TC; 82803-TC; 82962; 83605; 83735-TC; 83880; 84484; 85025; 85610-TC; 85730-TC; 87040-TC; 87081; 93005; 94640; 96365; 96375; 97110-GP; 97116-GP; 97530-GP; 99291; J0696; J1644; J1815; J1940; J1956; J7050; J7060; J7512

== ENCOUNTER 2016-08-06 10:32 | Inpatient (IN) | payer OTHER, BC ==
[~2016-08-06] VITALS: Ht 177.8 cm; Wt 112.6 kg
[2016-08-06 10:40] VITALS: BP_SYST 116
[2016-08-06] MEDS ORDERED: PIPERACILLIN/TAZO 3.38 GM in NS 50 ML IV ONE (11:00)
[2016-08-06] MEDS ORDERED: FUROSEMIDE 40 MG/4 ML VIAL IVP ONE (11:00)
[2016-08-06] MEDS ORDERED: PIPERACILLIN/TAZOBACTAM 3.375 GM/VIAL (ZOSYN) IV ONE (11:04)
[2016-08-06 11:10] LABS: BASOPHILS # (AUTO) 0.1 K/uL (0.0-0.2); BASOPHILS % (AUTO) 1.5 % (0.0-2.0); EOSINOPHILS % (AUTO) 0.1 % (0.0-4.0); HEMATOCRIT 32.2 % (36-54); HEMOGLOBIN 9.9 g/dL (14.0-18.0); LYMPHOCYTES # (AUTO) 0.9 K/uL (1.0-5.5); MEAN CORPUSCULAR HEMOGLOBIN 25 pg (27-31); MEAN CORPUSCULAR HGB CONC 31 % (32-36); MEAN CORPUSCULAR VOLUME 81 fL (79.0-98.0); MONOCYTES # (AUTO) 0.4 K/uL (0.0-1.0); MONOCYTES % (AUTO) 5.2 % (1.7-9.3); NEUTROPHILS # (AUTO) 5.9 K/uL (1.8-7.7); NEUTROPHILS % (AUTO) 81.2 % (40.0-70.0); PLATELET COUNT (AUTO) 155 K/uL (130-430); RED BLOOD CELL COUNT(AUTO) 3.97 MIL/uL (4.2-6.2); RED CELL DISTRIBUTION WIDTH 17.3 % (9.0-15.0); WHITE BLOOD COUNT (AUTO) 7.3 K/uL (4.8-10.8)
[2016-08-06] MEDS ORDERED: GLIP5TAB13 PO (11:13)
[2016-08-06] MEDS ORDERED: FESO8TAB PO (11:13)
[2016-08-06] MEDS ORDERED: PRED20TA PO (11:13)
[2016-08-06] MEDS ORDERED: LIRA0.6P SQ ×2 (11:13)
[2016-08-06] MEDS ORDERED: METF1000 PO (11:13)
[2016-08-06] MEDS ORDERED: [UNRECOGNIZED DRUG - CODE] PO (11:13)
[2016-08-06] MEDS ORDERED: GABA-529 PO (11:13)
[2016-08-06] MEDS ORDERED: LIP20 PO (11:13)
[2016-08-06] MEDS ORDERED: IPRA0.2S6 INH (11:13)
[2016-08-06] MEDS ORDERED: FURO-149 PO (11:13)
[2016-08-06] MEDS ORDERED: POTA40LI2 PO (11:13)
[2016-08-06 11:24] LABS: INR 1.1 (0.80-1.20); PROTHROMBIN TIME 12.3 SECS (9.5-12.5)
[2016-08-06 11:35] LABS: CALCIUM 7.8 mg/dL (8.4-11.0); CREATININE 1.55 mg/dL (0.55-1.30); POTASSIUM 5.5 mmol/L (3.5-5.1)
[2016-08-06 11:39] LABS: ALBUMIN 3.1 g/dL (3.4-4.8); TOTAL BILIRUBIN 0.7 mg/dL (0.0-1.0); TOTAL PROTEIN, SERUM 6.2 g/dL (6.4-8.3)
[2016-08-06] MEDS ORDERED: SODIUM BICARBONATE 8.4% JECT 50 MEQ/50 ML SYRINGE IVP ONE (12:00)
[2016-08-06] MEDS ORDERED: DEXTROSE 50% JECT 50 ML DISP.SYRIN IVP ONE (12:00)
[2016-08-06] MEDS ORDERED: INSULIN REGULAR, HUMAN 10 UNITS/0.1 ML INJ IVP ONE (12:00)
[2016-08-06] MEDS ORDERED: SODIUM POLYSTYRENE SULFONATE 15 GM/60 ML UDBTL PO ONE (12:00)
[2016-08-06] MEDS ORDERED: CALCIUM CHLORIDE 1 GM/10ML VIAL (13.6 mEq Ca++/VIAL) IVP ONE (12:00)
[2016-08-06] MEDS ORDERED: CALCIUM CHLORIDE 1 GM/10 ML DISP.SYRIN (14 mEq Ca++/SYR) ONE (12:23)
[2016-08-06 12:44] LABS: BILIRUBIN,URINE NEGATIVE (NEGATIVE); BLOOD, URINE NEGATIVE (NEGATIVE); CLARITY/URINE CLEAR (CLEAR); COLOR,URINE YELLOW (YELLOW); GLUCOSE,URINE NEGATIVE (NEGATIVE); KETONES,URINE NEGATIVE (NEGATIVE); LEUKOCYTE ESTERASE ,URINE 2+ (NEGATIVE); NITRITE, URINE NEGATIVE (NEGATIVE); PROTEIN URINE NEGATIVE (NEGATIVE); UROBILINOGEN,URINE 0.2 (0.2-1.0)
[2016-08-06 12:52] LABS: BACTERIA,URINE FEW /HPF (None Seen); MUCUS,URINE None Seen /LPF (None Seen)
[2016-08-06 13:28] VITALS: BP_SYST 133
[2016-08-06 16:21] VITALS: BP_SYST 122
[2016-08-06 19:22] VITALS: BP_SYST 147
[2016-08-06] MEDS: FUROSEMIDE 40 MG/4 ML VIAL IVP SCH (21:34)
[2016-08-07] VITALS (7 sets, daily range): BP systolic 110–142
[2016-08-07] MEDS ORDERED: DEXTROSE 50% JECT 50 ML DISP.SYRIN IVP PRN (06:30)
[2016-08-07 07:21] LABS: CREATININE 1.37 mg/dL (0.55-1.30); POTASSIUM 3.3 mmol/L (3.5-5.1)
[2016-08-07] MEDS: IPRATROPIUM BROM 0.5 MG/2.5 ML VIAL.NEB (ATROVENT) INH PRN (07:49)
[2016-08-07] MEDS: metFORMIN HCL 500 MG TABLET PO SCH ×2 (09:11→17:08)
[2016-08-07] MEDS: FUROSEMIDE 40 MG/4 ML VIAL IVP SCH ×2 (09:11→20:17)
[2016-08-07] MEDS: ATORVASTATIN 20 MG TABLET PO SCH (09:11)
[2016-08-07] MEDS: GABAPENTIN 100 MG CAPSULE PO SCH ×3 (09:11→20:26)
[2016-08-07] MEDS ORDERED: METOPROLOL SUCCINATE 25 MG TAB.SR.24H (TOPROL XL) PO ONE (13:15)
[2016-08-07] MEDS ORDERED: DILTIAZEM HCL 180 MG CAP.SR.24H PO ONE (19:00)
[2016-08-07] MEDS ORDERED: METOLAZONE 5 MG TABLET PO ONE (19:00)
[2016-08-07] MEDS: POTASSIUM CHLORIDE 20 MEQ/PKT PACKET PO SCH (20:17)
[2016-08-07] MEDS: METOPROLOL SUCCINATE 25 MG TAB.SR.24H (TOPROL XL) PO SCH (20:19)
[2016-08-08] VITALS (8 sets, daily range): BP systolic 102–130
[2016-08-08 05:35] LABS: BASOPHILS % (AUTO) 0.5 % (0.0-2.0); EOSINOPHILS # (AUTO) 0.1 K/uL (0.0-0.4); EOSINOPHILS % (AUTO) 0.8 % (0.0-4.0); HEMATOCRIT 32.6 % (36-54); HEMOGLOBIN 10.3 g/dL (14.0-18.0); LYMPHOCYTES # (AUTO) 1.9 K/uL (1.0-5.5); LYMPHOCYTES % (AUTO) 25.2 % (20.5-51.5); MEAN CORPUSCULAR HEMOGLOBIN 25 pg (27-31); MEAN CORPUSCULAR HGB CONC 32 % (32-36); MEAN CORPUSCULAR VOLUME 80 fL (79.0-98.0); MONOCYTES # (AUTO) 0.4 K/uL (0.0-1.0); MONOCYTES % (AUTO) 5.8 % (1.7-9.3); NEUTROPHILS % (AUTO) 67.7 % (40.0-70.0); PLATELET COUNT (AUTO) 167 K/uL (130-430); RED BLOOD CELL COUNT(AUTO) 4.05 MIL/uL (4.2-6.2); RED CELL DISTRIBUTION WIDTH 17.1 % (9.0-15.0); WHITE BLOOD COUNT (AUTO) 7.4 K/uL (4.8-10.8)
[2016-08-08 05:44] LABS: CALCIUM 7.6 mg/dL (8.4-11.0); CREATININE 1.26 mg/dL (0.55-1.30); TOTAL BILIRUBIN 1.1 mg/dL (0.0-1.0); TOTAL PROTEIN, SERUM 6.1 g/dL (6.4-8.3)
[2016-08-08 06:27] LABS: POTASSIUM 2.7 mmol/L (3.5-5.1)
[2016-08-08] MEDS ORDERED: POTASSIUM CHLORIDE 60 MEQ in NS 500 ML IV SCH (06:44)
[2016-08-08] MEDS ORDERED: POTASSIUM CHLORIDE 20 MEQ TAB.PRT.SR PO ONE (06:45)
[2016-08-08] MEDS: POTASSIUM CHLORIDE 20 MEQ/PKT PACKET PO SCH ×2 (08:06→20:36)
[2016-08-08] MEDS: METOLAZONE 5 MG TABLET PO SCH (08:07)
[2016-08-08] MEDS: GABAPENTIN 100 MG CAPSULE PO SCH ×3 (08:07→20:35)
[2016-08-08] MEDS: ATORVASTATIN 20 MG TABLET PO SCH (08:08)
[2016-08-08] MEDS: LOSARTAN POTASSIUM 25 MG TABLET PO SCH (08:08)
[2016-08-08] MEDS: metFORMIN HCL 500 MG TABLET PO SCH ×2 (08:08→17:12)
[2016-08-08] MEDS: FUROSEMIDE 40 MG/4 ML VIAL IVP SCH ×2 (08:09→21:00)
[2016-08-08] MEDS: METOPROLOL SUCCINATE 25 MG TAB.SR.24H (TOPROL XL) PO SCH ×2 (08:09→21:00)
[2016-08-08] MEDS ORDERED: DILTIAZEM HCL 180 MG CAP.SR.24H PO SCH ×2 (09:00)
[2016-08-08] MEDS ORDERED: NS 250 ML IV ONE ×2 (22:30→23:45)
[2016-08-08] MEDS: INSULIN REGULAR, HUMAN 100 UNITS/ML, 10 ML VIAL (novoLIN R) SUBCUT PRN (23:43)
[2016-08-09 04:52] VITALS: BP_SYST 116
[2016-08-09 07:11] LABS: BASOPHILS % (AUTO) 0.2 % (0.0-2.0); EOSINOPHILS # (AUTO) 0.1 K/uL (0.0-0.4); EOSINOPHILS % (AUTO) 1.2 % (0.0-4.0); HEMATOCRIT 30.1 % (36-54); HEMOGLOBIN 9.6 g/dL (14.0-18.0); LYMPHOCYTES # (AUTO) 1.6 K/uL (1.0-5.5); LYMPHOCYTES % (AUTO) 29.8 % (20.5-51.5); MEAN CORPUSCULAR HEMOGLOBIN 26 pg (27-31); MEAN CORPUSCULAR HGB CONC 32 % (32-36); MEAN CORPUSCULAR VOLUME 81 fL (79.0-98.0); MONOCYTES # (AUTO) 0.6 K/uL (0.0-1.0); MONOCYTES % (AUTO) 10.6 % (1.7-9.3); NEUTROPHILS # (AUTO) 3.1 K/uL (1.8-7.7); NEUTROPHILS % (AUTO) 58.2 % (40.0-70.0); PLATELET COUNT (AUTO) 139 K/uL (130-430); RED BLOOD CELL COUNT(AUTO) 3.72 MIL/uL (4.2-6.2); RED CELL DISTRIBUTION WIDTH 16.7 % (9.0-15.0); WHITE BLOOD COUNT (AUTO) 5.4 K/uL (4.8-10.8)
[2016-08-09 07:25] LABS: ALBUMIN 2.7 g/dL (3.4-4.8); CALCIUM 7.7 mg/dL (8.4-11.0); CREATININE 1.31 mg/dL (0.55-1.30); TOTAL BILIRUBIN 0.9 mg/dL (0.0-1.0); TOTAL PROTEIN, SERUM 5.6 g/dL (6.4-8.3)
[2016-08-09 09:21] VITALS: BP_SYST 126
[2016-08-09] MEDS: ATORVASTATIN 20 MG TABLET PO SCH (09:25)
[2016-08-09] MEDS: LOSARTAN POTASSIUM 25 MG TABLET PO SCH (09:26)
[2016-08-09] MEDS: METOPROLOL SUCCINATE 25 MG TAB.SR.24H (TOPROL XL) PO SCH ×2 (09:26→21:17)
[2016-08-09] MEDS: metFORMIN HCL 500 MG TABLET PO SCH ×2 (09:27→18:00)
[2016-08-09] MEDS: FUROSEMIDE 40 MG/4 ML VIAL IVP SCH ×2 (09:28→21:17)
[2016-08-09] MEDS: POTASSIUM CHLORIDE 20 MEQ/PKT PACKET PO SCH ×2 (09:29→21:17)
[2016-08-09] MEDS: METOLAZONE 5 MG TABLET PO SCH (09:30)
[2016-08-09] MEDS: GABAPENTIN 100 MG CAPSULE PO SCH ×3 (09:30→21:16)
[2016-08-09] MEDS: VANCOMYCIN HCL 1,000 MG in NS 250 ML IV SCH ×2 (11:21→22:08)
[2016-08-09 11:51] VITALS: BP_SYST 101
[2016-08-09] MEDS: POTASSIUM CHLORIDE 20 MEQ TAB.PRT.SR PO SCH ×2 (12:14→16:23)
[2016-08-09] MEDS ORDERED: DILTIAZEM HCL 120 MG CAP.SR.24H PO ONE (12:41)
[2016-08-09] MEDS ORDERED: DILTIAZEM HCL 240 MG CAP.SR.24H PO ONE (12:45)
[2016-08-09 16:40] VITALS: BP_SYST 121
[2016-08-09] MEDS: IPRATROPIUM BROM 0.5 MG/2.5 ML VIAL.NEB (ATROVENT) INH PRN (16:40)
[2016-08-09 18:18] LABS: POTASSIUM 3.5 mmol/L (3.5-5.1)
[2016-08-09 20:00] VITALS: BP_SYST 127
[2016-08-10] VITALS (7 sets, daily range): BP systolic 101–121
[2016-08-10] MEDS: metFORMIN HCL 500 MG TABLET PO SCH ×2 (08:03→17:35)
[2016-08-10] MEDS: METOLAZONE 5 MG TABLET PO SCH (08:04)
[2016-08-10] MEDS: LOSARTAN POTASSIUM 25 MG TABLET PO SCH (08:04)
[2016-08-10] MEDS: GABAPENTIN 100 MG CAPSULE PO SCH ×3 (08:05→21:47)
[2016-08-10] MEDS: ATORVASTATIN 20 MG TABLET PO SCH (08:05)
[2016-08-10] MEDS: METOPROLOL SUCCINATE 25 MG TAB.SR.24H (TOPROL XL) PO SCH ×2 (08:07→21:47)
[2016-08-10] MEDS: DILTIAZEM HCL 240 MG CAP.SR.24H PO SCH (08:07)
[2016-08-10] MEDS: POTASSIUM CHLORIDE 20 MEQ/PKT PACKET PO SCH ×2 (08:08→21:46)
[2016-08-10] MEDS: FUROSEMIDE 40 MG/4 ML VIAL IVP SCH ×2 (08:09→21:47)
[2016-08-10] MEDS ORDERED: BALSAM PERU/CASTOR OIL 60 GM OINT...G. TP SCH (09:00)
[2016-08-10] MEDS: VANCOMYCIN HCL 1,000 MG in NS 250 ML IV SCH ×2 (13:00→22:31)
[2016-08-10] MEDS: INSULIN REGULAR, HUMAN 100 UNITS/ML, 10 ML VIAL (novoLIN R) SUBCUT PRN ×2 (13:08→17:38)
[2016-08-10] MEDS: BALSAM PERU/CASTOR OIL 60 GM OINT...G. TP SCH (13:10)
[2016-08-10] MEDS: IPRATROPIUM BROM 0.5 MG/2.5 ML VIAL.NEB (ATROVENT) INH PRN (15:33)
[2016-08-11 00:12] VITALS: BP_SYST 113
[2016-08-11] MEDS: IPRATROPIUM BROM 0.5 MG/2.5 ML VIAL.NEB (ATROVENT) INH PRN (02:00)
[2016-08-11 04:24] VITALS: BP_SYST 106
[2016-08-11 08:02] VITALS: BP_SYST 115
[2016-08-11] MEDS: ATORVASTATIN 20 MG TABLET PO SCH (08:28)
[2016-08-11] MEDS: LOSARTAN POTASSIUM 25 MG TABLET PO SCH (08:28)
[2016-08-11] MEDS: GABAPENTIN 100 MG CAPSULE PO SCH ×2 (08:28→14:46)
[2016-08-11] MEDS: FUROSEMIDE 40 MG/4 ML VIAL IVP SCH (08:29)
[2016-08-11] MEDS: DILTIAZEM HCL 240 MG CAP.SR.24H PO SCH (08:29)
[2016-08-11] MEDS: metFORMIN HCL 500 MG TABLET PO SCH ×2 (08:29→17:11)
[2016-08-11] MEDS: METOLAZONE 5 MG TABLET PO SCH (08:30)
[2016-08-11] MEDS: METOPROLOL SUCCINATE 25 MG TAB.SR.24H (TOPROL XL) PO SCH (08:30)
[2016-08-11] MEDS: BALSAM PERU/CASTOR OIL 60 GM OINT...G. TP SCH (08:38)
[2016-08-11] MEDS: POTASSIUM CHLORIDE 20 MEQ/PKT PACKET PO SCH (08:38)
[2016-08-11] MEDS: VANCOMYCIN HCL 1,000 MG in NS 250 ML IV SCH (11:09)
[2016-08-11 11:48] VITALS: BP_SYST 122
[2016-08-11] MEDS ORDERED: BALSAM PERU/CASTOR OIL 60 GM OINT...G. TP SCH (15:00)
[2016-08-11 15:36] VITALS: BP_SYST 118
[2016-08-11 18:22] VITALS: BP_SYST 118
== END 2016-08-11 19:00 | DRG 264 ==
LOC: SED 10:32 → STU 12:11
PROVIDERS: ADMIT Internal Medicine Hospice and Palliative Medicine; ATTEND Internal Medicine Hospice and Palliative Medicine
PROC: 0JBQ0ZZ Excision of Right Foot Subcutaneous Tissue and Fascia, Open Approach (ICD-10-PCS; principal; 2016-08-10)
PROC: 0JBR0ZZ Excision of Left Foot Subcutaneous Tissue and Fascia, Open Approach (ICD-10-PCS; 2016-08-10)
DX: E11.51 Type 2 diabetes mellitus with diabetic peripheral angiopathy without gangrene (principal); L03.115 Cellulitis of right lower limb; I11.0 Hypertensive heart disease with heart failure; E11.621 Type 2 diabetes mellitus with foot ulcer; I50.9 Heart failure, unspecified; E11.42 Type 2 diabetes mellitus with diabetic polyneuropathy; I25.10 Atherosclerotic heart disease of native coronary artery without angina pectoris; I48.0 Paroxysmal atrial fibrillation; J44.9 Chronic obstructive pulmonary disease, unspecified; L89.892 Pressure ulcer of other site, stage 2; N28.9 Disorder of kidney and ureter, unspecified; Z96.652 Presence of left artificial knee joint; I25.5 Ischemic cardiomyopathy; Z87.891 Personal history of nicotine dependence; Z95.1 Presence of aortocoronary bypass graft; Z79.4 Long term (current) use of insulin; I25.2 Old myocardial infarction; I73.9 Peripheral vascular disease, unspecified
CPT/HCPCS: 36415; 71010; 80048; 80053; 81000-TC; 82962; 83605; 83690-TC; 83735-TC; 83880; 84132-TC; 85025; 85379; 85610-TC; 87040-TC; 87081; 87086; 93005; 93923; 93970; 94640; 94760; 96365; 96375; 99291; J1815; J1940; J2543; J3370; J3480; J7040; J7050